=== PATIENT | female | born 1955 | race Two or more races ===

== ENCOUNTER 2017-05-04 21:11 | Inpatient (IN) | payer MEDICAID ==
[~2017-05-04] VITALS: Ht 149.9 cm; Wt 56.2 kg
[2017-05-04 21:56] LABS: BASOPHILS % (AUTO) 0.7 % (0.0-2.0); EOSINOPHILS % (AUTO) 0.5 % (0.0-3.0); MEAN CORPUSCULAR HEMOGLOBIN 34.8 PG (27.0-31.0); MEAN CORPUSCULAR HGB CONC 34.3 G/DL (32.0-36.0); MEAN CORPUSCULAR VOLUME 101 FL (80-99); MEAN PLATELET VOLUME 5.7 FL (6.5-10.1); NEUTROPHILS % (AUTO) 85.7 % (45.0-75.0); PLATELET COUNT 206 K/UL (150-450); RED BLOOD COUNT 3.27 M/UL (4.20-5.40); RED CELL DISTRIBUTION WIDTH 13.9 % (11.6-14.8); WHITE BLOOD COUNT 4.8 K/UL (4.8-10.8)
[2017-05-04 22:00] VITALS: BP 103/65
[2017-05-04] MEDS ORDERED: FENTANYL1 EAC1 TOPIC (22:03)
[2017-05-04 22:06] LABS: TROPONIN I < 0.30 ng/mL (<=0.30)
[2017-05-04 22:09] LABS: ALANINE AMINOTRANSFERASE 143 U/L (3-33); ALBUMIN/GLOBULIN RATIO 1.9 (1.0-2.7); ANION GAP 15 (5-15); ASPARTATE AMINO TRANSFERASE 106 U/L (5-40); CALCIUM 9.1 mg/dL (8.6-10.2); CARBON DIOXIDE 28 mEQ/L (20-30); CHLORIDE 100 mEQ/L (98-107); CREATININE 0.6 mg/dL (0.5-0.9); GLOMERULAR FILTRATION RATE > 60 mL/min (>60); HEMOLYSIS 5; LIPASE 25 U/L (< 60); POTASSIUM 4.2 mEQ/L (3.4-4.9); SODIUM 143 mEQ/L (135-145); TOTAL PROTEIN 5.9 g/dL (6.6-8.7)
[2017-05-04 22:20] LABS: CKMB 2.8 ng/mL (< 3.8)
[2017-05-04] MEDS ORDERED: Zolpidem 5mg tab ORAL PRN (22:45)
[2017-05-04] MEDS ORDERED: Piperacillin/Tazobactam 3.375 GM in NS 110 ML IVPB ONE (22:45)
[2017-05-04] MEDS ORDERED: Miralax 17gm pkt ORAL PRN (22:45)
[2017-05-04] MEDS ORDERED: Mylanta II UD 30ml ORAL PRN (22:45)
[2017-05-04] MEDS ORDERED: Morphine Sulfate 2mg/ml Inj IVP PRN (22:45)
[2017-05-04] MEDS ORDERED: Morphine Sulfate 4mg/ml Inj IVP PRN (22:45)
--- NOTE | 2017-05-04 23:28 | Emergency Room Report ---
History of Present Illness General Chief Complaint: Dyspnea/Respdistress Source: Family Member, Medical Record Present Illness HPI Patient presents from nursing facility with complaints of shortness of breath Speaking to the daughter she reports of the patient's oxygenation was 98% Went to 95% and therefore the patient was sent to the ER Speaking further however she reports that her blood pressure was also low No reports of vomiting or diarrhea Patient had recent extended hospitalization at [facility] recently There was no reports of fevers or chills Patient has chronic pain and is on multiple pain medications Patient also has brain tumor Had previous resection Allergies: Coded Allergies: No Known Allergies (Unverified , 05/04/17) Patient History Limited by: medical condition Past Medical History: see triage record Pertinent Family History: unable to obtain Last Menstrual Period: N/A Reviewed Nursing Documentation: PMH: Agreed, PSxH: Agreed Nursing Documentation-PMH Past Medical History: No History, Except For Hx Cerebrovascular Accident: Yes - LEFT FACIAL DROOPING Review of Systems All Other Systems: limited - Other than the ones mentioned in the history of present illness all others are reviewed however they do stay limited due to the patient's mental status Physical Exam Vital Signs Date Time Temp Pulse Resp B/P Pulse Ox O2 Delivery O2 Flow Rate FiO2 05/04/17 21:01 99.7 117 16 92/53 94 Room Air Sp02 EP Interpretation: reviewed, normal General Appearance: no apparent distress Head: other - Patient has previous craniectomy Eyes: bilateral eye EOMI ENT: normal pharynx, no angioedema, other - Patient has right-sided facial palsy Neck: supple Respiratory: lungs clear Cardiovascular #1: regular rate, rhythm, no edema Gastrointestinal: non tender, soft Genitourinary: no CVA tenderness Musculoskeletal: other - Patient has significant deficits from previous craniectomy, tumor Neurologic: other - Patient has eyes open and is able to track, otherwise nonverbal Skin: normal color, no rash Lymphatic: no adenopathy Medical Decision Making Diagnostic Impression: Primary Impression: UTI (urinary tract infection) Additional Impressions: Elevated transaminase level Hypotension ER Course Patient is a fairly complex patient with multiple differential to consideration including but not limited to cardiac cardiopulmonary and vascular emergencies Patient received further IV hydration Urine sample did show white blood cells and infection Patient was also previously on multiple pain medication including fentanyl patch which could explain some of the low blood pressure initially Patient initiated on antibiotics and admitted for further inpatient care Labs Test 05/04/17 21:19 05/04/17 21:32 Urine Color Pale yellow Urine Appearance Clear Urine pH 5 (4.5-8.0) Urine Specific [place] 1.015 (1.005-1.035) Urine Protein 1+ (NEGATIVE) Urine Glucose (UA) Negative (NEGATIVE) Urine Ketones Negative (NEGATIVE) Urine Occult Blood 5+ (NEGATIVE) Urine Nitrite Negative (NEGATIVE) Urine Bilirubin Negative (NEGATIVE) Urine Urobilinogen Normal MG/DL (0.0-1.0) Urine Leukocyte Esterase 2+ (NEGATIVE) Urine RBC 20-30 /HPF (0 - 2) Urine WBC 30-40 /HPF (0 - 2) Urine Squamous Epithelial Cells Occasional /LPF Urine Bacteria Occasional /HPF (NONE) White Blood Count 4.8 K/UL (4.8-10.8) Red Blood Count 3.27 M/UL (4.20-5.40) Hemoglobin 11.4 G/DL (12.0-16.0) Hematocrit 33.1 % (37.0-47.0) Mean Corpuscular Volume 101 FL (80-99) Mean Corpuscular Hemoglobin 34.8 PG (27.0-31.0) Mean Corpuscular Hemoglobin Concent 34.3 G/DL (32.0-36.0) Red Cell Distribution Width 13.9 % (11.6-14.8) Platelet Count 206 K/UL (150-450) Mean Platelet Volume 5.7 FL (6.5-10.1) Neutrophils (%) (Auto) 85.7 % (45.0-75.0) Lymphocytes (%) (Auto) 6.0 % (20.0-45.0) Monocytes (%) (Auto) 7.0 % (1.0-10.0) Eosinophils (%) (Auto) 0.5 % (0.0-3.0) Basophils (%) (Auto) 0.7 % (0.0-2.0) Prothrombin Time 10.0 SEC (9.30-11.50) Prothromb Time International Ratio 1.0 (0.9-1.1) Activated Partial Thromboplast Time 21 SEC (23-33) Sodium Level 143 mEQ/L (135-145) Potassium Level 4.2 mEQ/L (3.4-4.9) Chloride Level 100 mEQ/L (98-107) Carbon Dioxide Level 28 mEQ/L (20-30) Anion Gap 15 (5-15) Blood Urea Nitrogen 20 mg/dL (7-23) Creatinine 0.6 mg/dL (0.5-0.9) Estimat Glomerular Filtration Rate > 60 mL/min (>60) Glucose Level 117 mg/dL (74-106) Lactic Acid Level 1.10 mmol/L (0.66-2.22) Calcium Level 9.1 mg/dL (8.6-10.2) Total Bilirubin 0.8 mg/dL (0.0-1.2) Aspartate Amino Transf (AST/SGOT) 106 U/L (5-40) Alanine Aminotransferase (ALT/SGPT) 143 U/L (3-33) Alkaline Phosphatase 125 U/L (35-104) Total Creatine Kinase 25 U/L (26-140) Creatine Kinase MB 2.8 ng/mL (< 3.8) Creatine Kinase MB Relative Index 11.2 Troponin I < 0.30 ng/mL (<=0.30) Pro-B-Type Natriuretic Peptide 2890 pg/mL (0-125) Total Protein 5.9 g/dL (6.6-8.7) Albumin 3.9 g/dL (3.5-5.2) Globulin 2.0 g/dL Albumin/Globulin Ratio 1.9 (1.0-2.7) Lipase 25 U/L (< 60) Rhythm Strip Diag. Results EP Interpretation: yes Rate: 88 Rhythm: NSR, no PVC's, no ectopy Chest X-Ray Diagnostic Results EP Interpretation: Yes Findings: no consolidation, no effusion, no pneumothorax Number of Views: 1 CT/MRI/US Diagnostic Results CT/MRI/US Diagnostic Results : Impression Abdominal ultrasound: No acute disease Last Vital Signs Date Time Temp Pulse Resp B/P Pulse Ox O2 Delivery O2 Flow Rate FiO2 05/04/17 22:00 99.7 100 11 103/65 94 Room Air Status: improved Disposition: ADMITTED INPATIENT Condition: Serious Referrals: ALONDRA SALEEM (PCP) OVI BARAJAS D.O. May 04, 2017 23:28
[2017-05-04 23:29] VITALS: BP 108/82
[2017-05-04] MEDS ORDERED: NAPROXEN250 M1 PO (23:29)
[2017-05-04] MEDS ORDERED: PREDNISONE20 M1 PO (23:29)
[2017-05-04] MEDS ORDERED: RISPERIDONE0.5 MG PO (23:29)
[2017-05-04] MEDS ORDERED: KEPPRA500 M4 ORAL (23:29)
[2017-05-04] MEDS ORDERED: PROTONIX40 M2 GT (23:30)
[2017-05-05] VITALS (7 sets, daily range): BP systolic 98–153; BP diastolic 63–92
[2017-05-05] MEDS ORDERED: Zosyn 3.375gm inj ONE (01:12)
[2017-05-05] MEDS: D5NS 1,000 ML IV SCH ×2 (01:14→12:35)
[2017-05-05] MEDS: LORazepam Inj 2mg/ml 1ml IV PRN ×2 (03:21→20:02)
[2017-05-05] MEDS ORDERED: VITAMIN D250000 UNI1 ORAL (04:07)
[2017-05-05] MEDS ORDERED: PROTONIX20 MG ORAL (04:07)
[2017-05-05] MEDS ORDERED: NAPROXEN500 M2 ORAL (04:07)
[2017-05-05] MEDS ORDERED: LOPERAMIDE2 MG PO (04:07)
[2017-05-05] MEDS ORDERED: LIDOCAINE TD (04:07)
[2017-05-05] MEDS ORDERED: TAMSULOSIN HCL0.4 MG ORAL (04:07)
[2017-05-05] MEDS ORDERED: hydromorphone PO (04:07)
[2017-05-05] MEDS ORDERED: RISPERDAL0.5 MG ORAL (04:07)
[2017-05-05] MEDS ORDERED: PREDNISONE20 MG ORAL (04:07)
[2017-05-05] MEDS ORDERED: TAPAZOLE5 M1 PO (04:07)
[2017-05-05] MEDS ORDERED: ZOFRAN4 M1 ORAL (04:07)
[2017-05-05 06:09] LABS: KETONES,URINE 2+ (NEGATIVE); LEUKOCYTE ESTERASE ,URINE 3+ (NEGATIVE); PH,URINE 5 (4.5-8.0); PROTEIN,URINE 2+ (NEGATIVE); UROBILINOGEN,URINE 1 MG/DL (0.0-1.0)
[2017-05-05 06:15] LABS: APPEARANCE,URINE SLIGHTLY CLOUDY
[2017-05-05 06:16] LABS: NITRITE,URINE NEGATIVE (NEGATIVE); WBC,URINE 40-60 /HPF (0 - 2)
[2017-05-05 06:17] LABS: BACTERIA,URINE FEW /HPF
[2017-05-05 06:18] LABS: ICTOTEST NEGATIVE
[2017-05-05 08:42] LABS: MEAN CORPUSCULAR HEMOGLOBIN 33.5 PG (27.0-31.0); MEAN CORPUSCULAR HGB CONC 33.3 G/DL (32.0-36.0); MEAN CORPUSCULAR VOLUME 101 FL (80-99); MEAN PLATELET VOLUME 6.3 FL (6.5-10.1); PLATELET COUNT 212 K/UL (150-450); RED BLOOD COUNT 3.26 M/UL (4.20-5.40); RED CELL DISTRIBUTION WIDTH 13.7 % (11.6-14.8); WHITE BLOOD COUNT 3.3 K/UL (4.8-10.8)
[2017-05-05 08:55] LABS: ALANINE AMINOTRANSFERASE 134 U/L (3-33); ALBUMIN/GLOBULIN RATIO 1.7 (1.0-2.7); ANION GAP 14 (5-15); ASPARTATE AMINO TRANSFERASE 85 U/L (5-40); CALCIUM 8.6 mg/dL (8.6-10.2); CARBON DIOXIDE 25 mEQ/L (20-30); CHLORIDE 101 mEQ/L (98-107); CREATININE 0.5 mg/dL (0.5-0.9); GLOMERULAR FILTRATION RATE > 60 mL/min (>60); HEMOLYSIS 4; POTASSIUM 3.1 mEQ/L (3.4-4.9); SODIUM 140 mEQ/L (135-145); TOTAL PROTEIN 5.5 g/dL (6.6-8.7)
--- NOTE | 2017-05-05 08:56 | Consultation ---
History of Present Illness General Date patient seen: May 05, 2017 Time patient seen: 07:30 - am Present Illness Allergies: Coded Allergies: No Known Allergies (Unverified , 05/04/17) Medication History Scheduled Ergocalciferol (Vitamin D2)* (Vitamin D*), 50,000 UNIT ORAL ONCE A WEEK, ( Reported) Fentanyl 50MCG Patch (Fentanyl 50MCG Patch*), 1 PATCH TOPIC EVERY 72 HOURS, ( Reported) Levetiracetam (Keppra), 500 MG ORAL EVERY 12 HOURS, (Reported) Methimazole (Tapazole), 5 MG PO DAILY, (Reported) Naproxen* (Naproxen*), 500 MG ORAL TWICE A DAY, (Reported) Pantoprazole Sodium (Protonix), 40 MG ORAL DAILY, (Reported) Prednisone* (Prednisone*), 60 MG ORAL DAILY, (Reported) Risperidone* (Risperdal*), 0.5 MG ORAL QHS, (Reported) Tamsulosin Hcl (Tamsulosin Hcl*), 0.4 MG ORAL BEDTIME, (Reported) [lidocaie patch], 5 % TD DAILY, (Reported) Scheduled PRN Loperamide Hcl (Loperamide), 2 MG PO EVERY 6 HOURS PRN for Diarrhea, (Reported) Ondansetron (Zofran), 4 MG ORAL Q8HR PRN for Nausea & Vomiting, (Reported) [hydromorphone], 4 MG PO EVERY 2 HOURS PRN for For Pain, (Reported) Discontinued Medications Naproxen (Naproxen), 500 MG PO, (Reported) Discontinued Reason: Prescription changed Pantoprazole Sodium (Protonix), 40 MG GT DAILY, (Reported) Discontinued Reason: Prescription changed Patient History Healthcare decision maker Ellen Buchanan Resuscitation status Do Not Resuscitate Advanced Directive on File Physical Exam Last 24 Hour Vital Signs Date Time Temp Pulse Resp B/P Pulse Ox O2 Delivery O2 Flow Rate FiO2 05/05/17 08:10 96.6 92 18 124/76 95 Room Air 05/05/17 04:00 104 05/05/17 04:00 97.7 92 20 99/63 96 Room Air 05/05/17 00:55 97.5 97 20 98/69 98 Room Air 05/05/17 00:00 115 05/04/17 23:41 99.7 100 18 108/82 96 Room Air 05/04/17 23:29 99.7 100 18 108/82 96 Room Air 05/04/17 22:00 99.7 100 11 103/65 94 Room Air 05/04/17 21:58 102 13 Room Air 05/04/17 21:01 99.7 117 16 92/53 94 Room Air Intake and Output 05/04/17 05/05/17 19:00 07:00 Intake Total 485 ml Output Total 335 ml Balance 150 ml Intake IV Total 485 ml Output Urine Total 335 ml Laboratory Tests Test 05/04/17 21:32 05/05/17 06:00 05/05/17 08:10 White Blood Count 4.8 K/UL (4.8-10.8) 3.3 K/UL (4.8-10.8) L Red Blood Count 3.27 M/UL (4.20-5.40) L 3.26 M/UL (4.20-5.40) L Hemoglobin 11.4 G/DL (12.0-16.0) L 10.9 G/DL (12.0-16.0) L Hematocrit 33.1 % (37.0-47.0) L 32.8 % (37.0-47.0) L Mean Corpuscular Volume 101 FL (80-99) H 101 FL (80-99) H Mean Corpuscular Hemoglobin 34.8 PG (27.0-31.0) H 33.5 PG (27.0-31.0) H Mean Corpuscular Hemoglobin Concent 34.3 G/DL (32.0-36.0) 33.3 G/DL (32.0-36.0) Red Cell Distribution Width 13.9 % (11.6-14.8) 13.7 % (11.6-14.8) Platelet Count 206 K/UL (150-450) 212 K/UL (150-450) Mean Platelet Volume 5.7 FL (6.5-10.1) L 6.3 FL (6.5-10.1) L Neutrophils (%) (Auto) 85.7 % (45.0-75.0) H % (45.0-75.0) Lymphocytes (%) (Auto) 6.0 % (20.0-45.0) L % (20.0-45.0) Monocytes (%) (Auto) 7.0 % (1.0-10.0) % (1.0-10.0) Eosinophils (%) (Auto) 0.5 % (0.0-3.0) % (0.0-3.0) Basophils (%) (Auto) 0.7 % (0.0-2.0) % (0.0-2.0) Prothrombin Time 10.0 SEC (9.30-11.50) Prothromb Time International Ratio 1.0 (0.9-1.1) Activated Partial Thromboplast Time 21 SEC (23-33) L Sodium Level 143 mEQ/L (135-145) Pending Potassium Level 4.2 mEQ/L (3.4-4.9) Pending Chloride Level 100 mEQ/L (98-107) Pending Carbon Dioxide Level 28 mEQ/L (20-30) Pending Anion Gap 15 (5-15) Blood Urea Nitrogen 20 mg/dL (7-23) Pending Creatinine 0.6 mg/dL (0.5-0.9) Pending Estimat Glomerular Filtration Rate > 60 mL/min (>60) Pending Glucose Level 117 mg/dL (74-106) H Pending Lactic Acid Level 1.10 mmol/L (0.66-2.22) Calcium Level 9.1 mg/dL (8.6-10.2) Pending Total Bilirubin 0.8 mg/dL (0.0-1.2) Pending Aspartate Amino Transf (AST/SGOT) 106 U/L (5-40) H Pending Alanine Aminotransferase (ALT/SGPT) 143 U/L (3-33) H Pending Alkaline Phosphatase 125 U/L (35-104) H Pending Total Creatine Kinase 25 U/L (26-140) L Creatine Kinase MB 2.8 ng/mL (< 3.8) Creatine Kinase MB Relative Index 11.2 Troponin I < 0.30 ng/mL (<=0.30) Pro-B-Type Natriuretic Peptide 2890 pg/mL (0-125) H Total Protein 5.9 g/dL (6.6-8.7) L Pending Albumin 3.9 g/dL (3.5-5.2) Pending Globulin 2.0 g/dL Pending Albumin/Globulin Ratio 1.9 (1.0-2.7) Lipase 25 U/L (< 60) Urine Color Green Urine Appearance Slightly cloudy Urine pH 5 (4.5-8.0) Urine Specific [place] 1.020 (1.005-1.035) Urine Protein 2+ (NEGATIVE) H Urine Glucose (UA) Negative (NEGATIVE) Urine Ketones 2+ (NEGATIVE) H Urine Occult Blood 1+ (NEGATIVE) H Urine Nitrite Negative (NEGATIVE) Urine Bilirubin 1+ (NEGATIVE) H Urine Ictotest Negative Urine Urobilinogen 1 MG/DL (0.0-1.0) H Urine Leukocyte Esterase 3+ (NEGATIVE) H Urine RBC 2-4 /HPF (0 - 2) H Urine WBC 40-60 /HPF (0 - 2) H Urine Squamous Epithelial Cells None /LPF (NONE/OCC) Urine Bacteria Few /HPF (NONE) Neutrophils % (Manual) Pending Lymphocytes % (Manual) Pending Platelet Estimate Pending Platelet Morphology Pending Thyroid Stimulating Hormone (TSH) Pending Height (Feet): 4 Height (Inches): 11.00 Weight (Pounds): 103 Medications Current Medications Medications (Trade) Dose Ordered Sig/Hamlet Route PRN Reason Start Time Stop Time Status Last Admin Dose Admin Acetaminophen (Tylenol) 650 mg Q4H PRN ORAL fever 05/04/17 22:45 06/03/17 22:44 Al Hydroxide/Mg Hydroxide (Mylanta II) 30 ml Q6H PRN ORAL dyspepsia 05/04/17 22:45 06/03/17 22:44 Dextrose (Dextrose 50%) STAT PRN IV Hypoglycemia 05/04/17 22:45 06/03/17 22:44 Dextrose/Sodium Chloride (D5ns) 1,000 ml @ 75 mls/hr [id number] IV 05/04/17 22:45 06/03/17 22:44 05/05/17 01:14 Heparin Sodium (Porcine) (Heparin 5000 units/ml) 5,000 units EVERY 12 HOURS SUBQ 05/05/17 09:00 06/04/17 08:59 Lorazepam (Ativan 2mg/ml 1ml) 0.5 mg Q4H PRN IV For Anxiety 05/04/17 22:45 05/11/17 22:44 05/05/17 03:21 Morphine Sulfate (Morphine Sulfate) 2 mg Q4H PRN IVP For Pain 4-6 05/04/17 22:45 05/11/17 22:44 Morphine Sulfate 4 mg 4 mg Q4H PRN IVP For Pain 7-10 05/04/17 22:45 05/11/17 22:44 05/05/17 01:18 Ondansetron HCl (Zofran) 4 mg Q6H PRN IVP Nausea & Vomiting 05/04/17 22:45 06/03/17 22:44 Polyethylene Glycol (Miralax) 17 gm HSPRN PRN ORAL Constipation 05/04/17 22:45 06/03/17 22:44 Zolpidem Tartrate (Ambien) 5 mg HSPRN PRN ORAL Insomnia 05/04/17 22:45 06/03/17 22:44 Assessment/Plan Assessment/Plan (1) Metastatic Melanoma to brain (2) intractable pain (3) Sacral decubitus ulcer seen and dictated LEIGHA RICHARDSON May 05, 2017 08:56
[2017-05-05] MEDS: Heparin 5000 units/ml inj SUBQ SCH ×2 (09:13→21:26)
--- NOTE | 2017-05-05 09:19 | Diagnostic Imaging Report ---
Indication:Abdominal pain Technique: Grayscale and duplex Doppler imaging of the abdomen performed. Comparison: None Findings: There is a cystic lesion measuring 1.7 x 2.0 CM within the spleen. There is an echogenic mass in the right kidney 1.1 CM probably angiomyolipoma. There is no hydronephrosis. Gallbladder sludge is present. Gallbladder wall thickening is present, nonspecific in nature. There is no biliary ductal dilatation. The liver appears unremarkable. Main portal vein is patent by Doppler examination. CBD is 4 mm. Pancreas is not well seen. Aorta is not well seen. Impression: Limited evaluation of the abdomen. Gallbladder sludge and wall thickening. 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 Splenic cyst
--- NOTE | 2017-05-05 09:33 | Diagnostic Imaging Report ---
Indication: Dyspnea Comparison: None A single view chest radiograph was obtained. Findings: Patchy infiltrate versus atelectasis demonstrated at the lung bases. Lung volumes are low. Heart size is borderline. Bones are slightly osteopenic. Aorta is ectatic. Impression: Mild infiltrate versus atelectasis at the lung bases
[2017-05-05] MEDS ORDERED: Naloxone 0.4mg/ml Inj IV PRN (10:00)
[2017-05-05] MEDS ORDERED: HYDROmorphone 1mg/ml Carpuject IVP PRN (10:00)
[2017-05-05] MEDS ORDERED: Tubing IV Secondary IV ONE (10:33)
[2017-05-05] MEDS ORDERED: D5NS 1000ml IV ONE (10:33)
--- NOTE | 2017-05-05 11:12 | History & Physical ---
History and Physical History & Physicial Dictated for Int Med-Dr Ortiz no. [id number]. STACY KIMBALL May 05, 2017 11:12
[2017-05-05 11:19] LABS: BAND NEUTROPHILS % (MANUAL) 0 % (0-8); BASOPHILS % (MANUAL) 0 % (0-2); EOSINOPHILS % (MANUAL) 0 % (0-3); HYPOCHROMASIA 1+; LYMPHOCYTES % (MANUAL) 12 % (20-45); MACROCYTES 1+; NEUTROPHILS % (MANUAL) 81 % (45-75); PLATELET ESTIMATE ADEQUATE; PLATELET MORPHOLOGY NORMAL; TOTAL CELLS COUNTED 100
--- NOTE | 2017-05-05 12:31 | Consultation ---
History of Present Illness General Date patient seen: May 05, 2017 Chief Complaint: Dyspnea/Respdistress Reason for Consultation: dypnea Present Illness HPI 61 year old female with hx of melanoma, brain mets, s/p resection presented from nursing facility with complaints of shortness of breath, her blood pressure was also low Patient had recent extended hospitalization at [facility] recently. She has chronic pain and is on multiple pain medications. Allergies: Coded Allergies: No Known Allergies (Unverified , 05/04/17) Medication History Scheduled Ergocalciferol (Vitamin D2)* (Vitamin D*), 50,000 UNIT ORAL ONCE A WEEK, ( Reported) Fentanyl 50MCG Patch (Fentanyl 50MCG Patch*), 1 PATCH TOPIC EVERY 72 HOURS, ( Reported) Levetiracetam (Keppra), 500 MG ORAL EVERY 12 HOURS, (Reported) Methimazole (Tapazole), 5 MG PO DAILY, (Reported) Naproxen* (Naproxen*), 500 MG ORAL TWICE A DAY, (Reported) Pantoprazole Sodium (Protonix), 40 MG ORAL DAILY, (Reported) Prednisone* (Prednisone*), 60 MG ORAL DAILY, (Reported) Risperidone* (Risperdal*), 0.5 MG ORAL QHS, (Reported) Tamsulosin Hcl (Tamsulosin Hcl*), 0.4 MG ORAL BEDTIME, (Reported) [lidocaie patch], 5 % TD DAILY, (Reported) Scheduled PRN Loperamide Hcl (Loperamide), 2 MG PO EVERY 6 HOURS PRN for Diarrhea, (Reported) Ondansetron (Zofran), 4 MG ORAL Q8HR PRN for Nausea & Vomiting, (Reported) [hydromorphone], 4 MG PO EVERY 2 HOURS PRN for For Pain, (Reported) Discontinued Medications Naproxen (Naproxen), 500 MG PO, (Reported) Discontinued Reason: Prescription changed Pantoprazole Sodium (Protonix), 40 MG GT DAILY, (Reported) Discontinued Reason: Prescription changed Patient History Healthcare decision maker Ellen Buchanan Resuscitation status Do Not Resuscitate Advanced Directive on File Past Medical/Surgical History Past Medical/Surgical History: (1) Melanoma (2) Cerebrovascular accident (CVA) Review of Systems All Other Systems: negative except mentioned in HPI Physical Exam General Appearance: WD/WN Lines, tubes and drains: peripheral HEENT: normocephalic, atraumatic Neck: non-tender, normal alignment Respiratory/Chest: chest wall non-tender, lungs clear Cardiovascular/Chest: normal peripheral pulses, normal rate Abdomen: normal bowel sounds, non tender Genitourinary/Rectal: normal genital exam Skin Exam: normal pigmentation Last 24 Hour Vital Signs Date Time Temp Pulse Resp B/P Pulse Ox O2 Delivery O2 Flow Rate FiO2 05/05/17 11:52 96.4 93 18 128/83 96 05/05/17 10:47 96.6 05/05/17 10:15 96.6 05/05/17 08:10 96.6 92 18 124/76 95 Room Air 05/05/17 07:59 110 05/05/17 04:00 104 05/05/17 04:00 97.7 92 20 99/63 96 Room Air 05/05/17 00:55 97.5 97 20 98/69 98 Room Air 05/05/17 00:00 115 05/04/17 23:41 99.7 100 18 108/82 96 Room Air 05/04/17 23:29 99.7 100 18 108/82 96 Room Air 05/04/17 22:00 99.7 100 11 103/65 94 Room Air 05/04/17 21:58 102 13 Room Air 05/04/17 21:01 99.7 117 16 92/53 94 Room Air Intake and Output 05/04/17 05/05/17 19:00 07:00 Intake Total 485 ml Output Total 335 ml Balance 150 ml Intake IV Total 485 ml Output Urine Total 335 ml Laboratory Tests Test 05/04/17 21:32 05/05/17 06:00 05/05/17 08:10 White Blood Count 4.8 K/UL (4.8-10.8) 3.3 K/UL (4.8-10.8) L Red Blood Count 3.27 M/UL (4.20-5.40) L 3.26 M/UL (4.20-5.40) L Hemoglobin 11.4 G/DL (12.0-16.0) L 10.9 G/DL (12.0-16.0) L Hematocrit 33.1 % (37.0-47.0) L 32.8 % (37.0-47.0) L Mean Corpuscular Volume 101 FL (80-99) H 101 FL (80-99) H Mean Corpuscular Hemoglobin 34.8 PG (27.0-31.0) H 33.5 PG (27.0-31.0) H Mean Corpuscular Hemoglobin Concent 34.3 G/DL (32.0-36.0) 33.3 G/DL (32.0-36.0) Red Cell Distribution Width 13.9 % (11.6-14.8) 13.7 % (11.6-14.8) Platelet Count 206 K/UL (150-450) 212 K/UL (150-450) Mean Platelet Volume 5.7 FL (6.5-10.1) L 6.3 FL (6.5-10.1) L Neutrophils (%) (Auto) 85.7 % (45.0-75.0) H % (45.0-75.0) Lymphocytes (%) (Auto) 6.0 % (20.0-45.0) L % (20.0-45.0) Monocytes (%) (Auto) 7.0 % (1.0-10.0) % (1.0-10.0) Eosinophils (%) (Auto) 0.5 % (0.0-3.0) % (0.0-3.0) Basophils (%) (Auto) 0.7 % (0.0-2.0) % (0.0-2.0) Prothrombin Time 10.0 SEC (9.30-11.50) Prothromb Time International Ratio 1.0 (0.9-1.1) Activated Partial Thromboplast Time 21 SEC (23-33) L Sodium Level 143 mEQ/L (135-145) 140 mEQ/L (135-145) Potassium Level 4.2 mEQ/L (3.4-4.9) 3.1 mEQ/L (3.4-4.9) L Chloride Level 100 mEQ/L (98-107) 101 mEQ/L (98-107) Carbon Dioxide Level 28 mEQ/L (20-30) 25 mEQ/L (20-30) Anion Gap 15 (5-15) 14 (5-15) Blood Urea Nitrogen 20 mg/dL (7-23) 14 mg/dL (7-23) Creatinine 0.6 mg/dL (0.5-0.9) 0.5 mg/dL (0.5-0.9) Estimat Glomerular Filtration Rate > 60 mL/min (>60) > 60 mL/min (>60) Glucose Level 117 mg/dL (74-106) H 117 mg/dL (74-106) H Lactic Acid Level 1.10 mmol/L (0.66-2.22) Calcium Level 9.1 mg/dL (8.6-10.2) 8.6 mg/dL (8.6-10.2) Total Bilirubin 0.8 mg/dL (0.0-1.2) 0.7 mg/dL (0.0-1.2) Aspartate Amino Transf (AST/SGOT) 106 U/L (5-40) H 85 U/L (5-40) H Alanine Aminotransferase (ALT/SGPT) 143 U/L (3-33) H 134 U/L (3-33) H Alkaline Phosphatase 125 U/L (35-104) H 103 U/L (35-104) Total Creatine Kinase 25 U/L (26-140) L Creatine Kinase MB 2.8 ng/mL (< 3.8) Creatine Kinase MB Relative Index 11.2 Troponin I < 0.30 ng/mL (<=0.30) Pro-B-Type Natriuretic Peptide 2890 pg/mL (0-125) H Total Protein 5.9 g/dL (6.6-8.7) L 5.5 g/dL (6.6-8.7) L Albumin 3.9 g/dL (3.5-5.2) 3.5 g/dL (3.5-5.2) Globulin 2.0 g/dL 2.0 g/dL Albumin/Globulin Ratio 1.9 (1.0-2.7) 1.7 (1.0-2.7) Lipase 25 U/L (< 60) Urine Color Green Urine Appearance Slightly cloudy Urine pH 5 (4.5-8.0) Urine Specific [place] 1.020 (1.005-1.035) Urine Protein 2+ (NEGATIVE) H Urine Glucose (UA) Negative (NEGATIVE) Urine Ketones 2+ (NEGATIVE) H Urine Occult Blood 1+ (NEGATIVE) H Urine Nitrite Negative (NEGATIVE) Urine Bilirubin 1+ (NEGATIVE) H Urine Ictotest Negative Urine Urobilinogen 1 MG/DL (0.0-1.0) H Urine Leukocyte Esterase 3+ (NEGATIVE) H Urine RBC 2-4 /HPF (0 - 2) H Urine WBC 40-60 /HPF (0 - 2) H Urine Squamous Epithelial Cells None /LPF (NONE/OCC) Urine Bacteria Few /HPF (NONE) Differential Total Cells Counted 100 Neutrophils % (Manual) 81 % (45-75) H Lymphocytes % (Manual) 12 % (20-45) L Monocytes % (Manual) 7 % (1-10) Eosinophils % (Manual) 0 % (0-3) Basophils % (Manual) 0 % (0-2) Band Neutrophils 0 % (0-8) Platelet Estimate Adequate Platelet Morphology Normal Hypochromasia 1+ Macrocytosis 1+ Thyroid Stimulating Hormone (TSH) 0.220 uIU/mL (0.300-4.500) Height (Feet): 4 Height (Inches): 11.00 Weight (Pounds): 103 Medications Current Medications Medications (Trade) Dose Ordered Sig/Hamlet Route PRN Reason Start Time Stop Time Status Last Admin Dose Admin Acetaminophen (Tylenol) 650 mg Q4H PRN ORAL fever 05/04/17 22:45 06/03/17 22:44 Al Hydroxide/Mg Hydroxide (Mylanta II) 30 ml Q6H PRN ORAL dyspepsia 05/04/17 22:45 06/03/17 22:44 Dextrose STAT PRN IV Hypoglycemia 05/04/17 22:45 06/03/17 22:44 Dextrose/Sodium Chloride (D5ns) 1,000 ml @ 75 mls/hr [id number] IV 05/04/17 22:45 06/03/17 22:44 05/05/17 01:14 Fentanyl (Duragesic) 1 patch Q72H TDERMAL 05/05/17 10:15 05/12/17 10:14 05/05/17 10:17 Heparin Sodium (Porcine) (Heparin 5000 units/ml) 5,000 units EVERY 12 HOURS SUBQ 05/05/17 09:00 06/04/17 08:59 05/05/17 09:13 Hydromorphone HCl 4 mg 4 mg Q4H PRN IVP Severe Pain (Pain Scale 7-10) 05/05/17 14:00 05/12/17 13:59 Levetiracetam (Keppra) 500 mg Q12HR ORAL 05/05/17 21:00 06/04/17 20:59 Lorazepam (Ativan 2mg/ml 1ml) 0.5 mg Q4H PRN IV For Anxiety 05/04/17 22:45 05/11/17 22:44 05/05/17 03:21 Naloxone HCl (Narcan) 0.1 mg PRN IV Sedation scale 3 or 4 05/05/17 10:00 Ondansetron HCl (Zofran) 4 mg Q6H PRN IVP Nausea & Vomiting 05/04/17 22:45 06/03/17 22:44 Oxycodone/ Acetaminophen 1 tab 1 tab Q6H PRN ORAL Moderate Pain (Pain Scale 4-6) 05/05/17 10:00 05/12/17 09:59 Piperacillin Sod/ Tazobactam Sod/ Dextrose (Zosyn/D5W) 110 ml @ 27.5 mls/hr EVERY 8 HOURS IVPB 05/05/17 13:00 05/10/17 12:59 Polyethylene Glycol (Miralax) 17 gm HSPRN PRN ORAL Constipation 05/04/17 22:45 06/03/17 22:44 Potassium Chloride (KCl 10mEq/100ml Premix) 100 ml @ 100 mls/hr Q1H IVPB 05/05/17 11:00 05/05/17 14:59 05/05/17 10:55 Zolpidem Tartrate (Ambien) 5 mg HSPRN PRN ORAL Insomnia 05/04/17 22:45 06/03/17 22:44 Assessment/Plan Problem List: (1) Dyspnea ICD Codes: R06.00 - Dyspnea, unspecified SNOMED: 842683790 (2) Hypotension ICD Codes: I95.9 - Hypotension, unspecified SNOMED: 96653429, 512488547 (3) Melanoma ICD Codes: C43.9 - Malignant melanoma of skin, unspecified SNOMED: 878034066 (4) Cerebrovascular accident (CVA) ICD Codes: I63.9 - Cerebral infarction, unspecified SNOMED: 599652000 (5) At high risk for aspiration ICD Codes: Z91.89 - Other specified personal risk factors, not elsewhere classified SNOMED: 937073991 Assessment/Plan Respiratory therapy swallow evalution check sputum ID and pain consult. dvt prophylaxis aspiration precaution BARB SHAH May 05, 2017 12:31
[2017-05-05] MEDS: Piperacillin/Tazobactam 3.375 GM in D5W 110 ML IVPB SCH ×2 (12:35→21:34)
--- NOTE | 2017-05-05 16:38 | Wound Care Consultation ---
Wound Assessment Wound Assessment : Wound Present on Admission: Yes New Wound: No Status Change of Wound: No Wound Location Body Site Modif: mid Wound Location Body Site: sacral - Wound Type: pressure ulcer Varun Test: Does not Varun Pressure Ulcer Stage: deep tissue injury Wound Thickness: Full Thickness Wound Length: 2.5 Wound Width: 2.5 Wound Depth: utd Percent of Wound Purple/Maroon: 100 Wound Drainage Amount: None Wound Drainage Odor: None/Absent Tissue Surrounding Wound: Erythemic Wound General Appearance: Reddened - purple Wound Comment #1 Sacral DTI pressure ulcer Recommendation -Local wound care per protocol for DTI -Keep clean and dry -Turn and reposition -Low air loss mattress -Optimize nutrition -Offload heels -Heel protector on both heels -Assess and f/u accordingly for any changes ISSAC MCARTHUR RN May 05, 2017 16:38
--- NOTE | 2017-05-05 16:45 | History and Physical Report ---
DATE OF ADMISSION: 05/04/2017 CHIEF COMPLAINT: The patient is a 61-year-old Malaysian-speaking woman with history of metastatic melanoma presents with chief complaint of hypoxia and altered mental status. HISTORY OF PRESENT ILLNESS: The patient was apparently discharged from herself and is unable to contribute much to the history and physical. The patient's daughter, Ellen Merchant is present. Much of the history and physical is obtained from the patient's daughter at the bedside. The patient apparently was discharged from [facility] on Wednesday,04/30/2017. The patient has a history of metastatic melanoma with metastases to the brain. According to staff at [facility], the patient became hypoxic yesterday, 05/04/2017. The patient also had "low blood pressure." The patient was transported to [place] emergency room. A chest x-ray revealed bilateral basilar pneumonia. The patient was admitted for hypoxia, altered mental status and bibasilar pneumonia. PAST MEDICAL HISTORY: Significant for 1. Melanoma with metastases to the brain. 2. Hydrocephalus. 3. Metabolic encephalopathy. 4. History of hemorrhagic cerebrovascular accident. 5. Hypothyroidism. 6. Stage II decubitus sacral ulcer. PAST SURGICAL HISTORY: Significant for 1. Resection of melanoma from the left calf. 2. Craniotomy in the recent past. MEDICATIONS: Current medications from [facility] 1. Keppra 500 mg two tablets p.o. twice daily. 2. Lidocaine transdermal patch applied q.12 h. 3. Naproxen 500 mg one tablet p.o. twice daily. 4. Prednisone 20 mg three tablets p.o. daily. 5. Protonix 40 mg p.o. every morning. 6. Risperdal 0.5 mg one tablet p.o. at bedtime. 7. Flomax 0.4 mg p.o. daily. 8. Tapazole 5 mg one tablet p.o. daily. 9. Vitamin D 50,000 units p.o. q.7 days. 10. Dilaudid 4 milligram three tablets p.o. q.2 h. p.r.n. 11. Imodium 2 mg two tablets p.o. q.6 h. p.r.n. 12. Zofran 4 mg one tablet p.o. q.8 h. p.r.n. ALLERGIES: No known drug allergies. SOCIAL HISTORY: The patient is . The patient has a grown daughter, Ellen Merchant with [id number]. The patient admits to previous tobacco use, however, quit three years previously. The patient denies alcohol use. REVIEW OF SYSTEMS: Unable to assess secondary to the patient's mental status. PHYSICAL EXAMINATION: GENERAL: The patient is well developed and well nourished white female, who appears older than her stated age. VITAL SIGNS: Temperature 97.5 degrees, respirations 20, pulse 97, blood pressure 98/69. HEENT: There is a left facial droop noted. Otherwise, eyes, pupils are equal and responsive to light and accommodation. Extraocular movements are intact. NECK: Supple without lymphadenopathy. CHEST: Decreased breath sounds at bilateral bases. Otherwise, without wheezes or rales. CARDIOVASCULAR: Regular rate. S1 and S2 normal without murmurs, rubs, gallops. ABDOMEN: Soft, nontender, and nondistended. Positive bowel sounds. No evidence of hepatosplenomegaly. Currently, no rebound or guarding. EXTREMITIES: Negative for clubbing, cyanosis, or edema. RECTAL/GENITAL: Refused. NEUROLOGIC: There is a left facial droop noted. Cranial nerves II through XII are grossly intact without focal deficits. Motor strength is decreased to 3/5 bilaterally. LABORATORY AND DIAGNOSTIC DATA: WBC 4.8, hemoglobin 11.4, hematocrit 33.1, and platelets 206,000. Sodium 143, potassium 4.2, chloride 100, CO2 28, BUN 20, creatinine 0.6, and glucose 117. Liver function tests were elevated with an AST 106, ALT of 143, and alkaline phosphatase 125. BNP elevated at 2890. Troponin less than 0.3. Chest x-ray revealed mild infiltrate versus atelectasis in the bilateral bases. An abdominal ultrasound revealed gallbladder sludge and gallbladder wall thickening. ASSESSMENT: This is a 61-year-old white female 1. Bilateral basilar pneumonia. 2. Altered mental status. 3. Hypoxia. 4. Dyspnea. 5. Hypotension. 6. Metastatic melanoma with metastases to the brain. 7. Hydrocephalus. 8. Metabolic encephalopathy. 9. Hemorrhagic cerebrovascular accident. 10. Hyperthyroidism. 11. Stage II decubitus ulcer of the sacrum. TREATMENT: 1. Bibasilar pneumonia. The patient has been started empirically on Zosyn. A Pulmonary consultation will be obtained with Dr. Guillermina Spear. Infectious Disease consultation will be obtained with Dr. Cox. Sputum cultures are pending. 2. Hypoxia/dyspnea, this is probably secondary to bibasilar pneumonia. as above. 3. Hypotension, this is probably secondary to sepsis. Continue Zosyn as above. 4. Metastatic melanoma with metastases to the brain. A Hematology/Oncology consultation will be obtained with Dr. Madsen. 5. Hydrocephalus, this is secondary to metastases to the brain. 6. Metabolic encephalopathy. 7. Hemorrhagic cerebrovascular accident. 8. Hypothyroidism. Continue Tapazole as above. 9. Stage II decubitus sacral ulcer. Justo Marin M.D. DR: GARIMA JOB#: [id number] CC:
--- NOTE | 2017-05-05 17:51 | Cardiology Report ---
APPROVED REPORT EKG Measurement Heart [id number] [place] 132P30 [id number] Sinus tachycardia Abnormal ECG
--- NOTE | 2017-05-05 17:51 | Consultation ---
Consult Note Consult Note Oncology Consult Note REQ : [facility]: Metastatic melanoma eval DOS 6.7.17 ID 61-year-old Bahamian-speaking woman with history of metastatic melanoma presents with chief complaint of hypoxia and altered mental status. Recently was admitted to [facility] and have reviewed their records, discussed with Ellen Merchant. The patient apparently was discharged from [facility] on Wednesday,04/30/2017. The patient has a history of metastatic melanoma with metastases to the brain. According to staff at [facility], the patient became hypoxic yesterday, 05/04/2017. The patient also had "low blood pressure." Now being admitted for bilateral pneumonia. PAST MEDICAL HISTORY: 1. Melanoma with metastases to the brain. 2. Hydrocephalus. 3. Metabolic encephalopathy. 4. History of hemorrhagic cerebrovascular accident. 5. Hypothyroidism. 6. Stage II decubitus sacral ulcer. PAST SURGICAL HISTORY: 1. Resection of melanoma from the left calf. 2. Craniotomy in the recent past. MEDICATIONS: 1. Keppra 500 mg two tablets p.o. twice daily. 2. Lidocaine transdermal patch applied q.12 h. 3. Naproxen 500 mg one tablet p.o. twice daily. 4. Prednisone 20 mg three tablets p.o. daily. 5. Protonix 40 mg p.o. every morning. 6. Risperdal 0.5 mg one tablet p.o. at bedtime. 7. Flomax 0.4 mg p.o. daily. 8. Tapazole 5 mg one tablet p.o. daily. 9. Vitamin D 50,000 units p.o. q.7 days. 10. Dilaudid 4 milligram three tablets p.o. q.2 h. p.r.n. 11. Imodium 2 mg two tablets p.o. q.6 h. p.r.n. 12. Zofran 4 mg one tablet p.o. q.8 h. p.r.n. ALLERGIES: No known drug allergies. SOCIAL HISTORY: The patient is . The patient has a grown daughter, Ellen Merchant with [id number]. The patient admits to previous tobacco use, however, quit three years previously. The patient denies alcohol use. REVIEW OF SYSTEMS: Unable to assess secondary to the patient's mental status. PE: General Appearance: A+O x3, NAD HEENT: normocephalic, atraumatic Neck: non-tender, normal alignment Respiratory/Chest: chest wall non-tender, lungs clear Cardiovascular/Chest: normal peripheral pulses, normal rate Abdomen: normal bowel sounds, non tender Labs: Laboratory Tests Test 05/04/17 21:32 05/05/17 06:00 05/05/17 08:10 White Blood Count 4.8 K/UL (4.8-10.8) 3.3 K/UL (4.8-10.8) L Red Blood Count 3.27 M/UL (4.20-5.40) L 3.26 M/UL (4.20-5.40) L Hemoglobin 11.4 G/DL (12.0-16.0) L 10.9 G/DL (12.0-16.0) L Hematocrit 33.1 % (37.0-47.0) L 32.8 % (37.0-47.0) L Mean Corpuscular Volume 101 FL (80-99) H 101 FL (80-99) H Mean Corpuscular Hemoglobin 34.8 PG (27.0-31.0) H 33.5 PG (27.0-31.0) H Mean Corpuscular Hemoglobin Concent 34.3 G/DL (32.0-36.0) 33.3 G/DL (32.0-36.0) Red Cell Distribution Width 13.9 % (11.6-14.8) 13.7 % (11.6-14.8) Platelet Count 206 K/UL (150-450) 212 K/UL (150-450) Mean Platelet Volume 5.7 FL (6.5-10.1) L 6.3 FL (6.5-10.1) L Neutrophils (%) (Auto) 85.7 % (45.0-75.0) H % (45.0-75.0) Lymphocytes (%) (Auto) 6.0 % (20.0-45.0) L % (20.0-45.0) Monocytes (%) (Auto) 7.0 % (1.0-10.0) % (1.0-10.0) Eosinophils (%) (Auto) 0.5 % (0.0-3.0) % (0.0-3.0) Basophils (%) (Auto) 0.7 % (0.0-2.0) % (0.0-2.0) Prothrombin Time 10.0 SEC (9.30-11.50) Prothromb Time International Ratio 1.0 (0.9-1.1) Activated Partial Thromboplast Time 21 SEC (23-33) L Sodium Level 143 mEQ/L (135-145) 140 mEQ/L (135-145) Potassium Level 4.2 mEQ/L (3.4-4.9) 3.1 mEQ/L (3.4-4.9) L Chloride Level 100 mEQ/L (98-107) 101 mEQ/L (98-107) Carbon Dioxide Level 28 mEQ/L (20-30) 25 mEQ/L (20-30) Anion Gap 15 (5-15) 14 (5-15) Blood Urea Nitrogen 20 mg/dL (7-23) 14 mg/dL (7-23) Creatinine 0.6 mg/dL (0.5-0.9) 0.5 mg/dL (0.5-0.9) Estimat Glomerular Filtration Rate > 60 mL/min (>60) > 60 mL/min (>60) Glucose Level 117 mg/dL (74-106) H 117 mg/dL (74-106) H Lactic Acid Level 1.10 mmol/L (0.66-2.22) Calcium Level 9.1 mg/dL (8.6-10.2) 8.6 mg/dL (8.6-10.2) Total Bilirubin 0.8 mg/dL (0.0-1.2) 0.7 mg/dL (0.0-1.2) Aspartate Amino Transf (AST/SGOT) 106 U/L (5-40) H 85 U/L (5-40) H Alanine Aminotransferase (ALT/SGPT) 143 U/L (3-33) H 134 U/L (3-33) H Alkaline Phosphatase 125 U/L (35-104) H 103 U/L (35-104) Total Creatine Kinase 25 U/L (26-140) L Creatine Kinase MB 2.8 ng/mL (< 3.8) Creatine Kinase MB Relative Index 11.2 Troponin I < 0.30 ng/mL (<=0.30) Pro-B-Type Natriuretic Peptide 2890 pg/mL (0-125) H Total Protein 5.9 g/dL (6.6-8.7) L 5.5 g/dL (6.6-8.7) L Albumin 3.9 g/dL (3.5-5.2) 3.5 g/dL (3.5-5.2) Globulin 2.0 g/dL 2.0 g/dL Albumin/Globulin Ratio 1.9 (1.0-2.7) 1.7 (1.0-2.7) Lipase 25 U/L (< 60) Urine Color Green Urine Appearance Slightly cloudy Urine pH 5 (4.5-8.0) Urine Specific [place] 1.020 (1.005-1.035) Urine Protein 2+ (NEGATIVE) H Urine Glucose (UA) Negative (NEGATIVE) Urine Ketones 2+ (NEGATIVE) H Urine Occult Blood 1+ (NEGATIVE) H Urine Nitrite Negative (NEGATIVE) Urine Bilirubin 1+ (NEGATIVE) H Urine Ictotest Negative Urine Urobilinogen 1 MG/DL (0.0-1.0) H Urine Leukocyte Esterase 3+ (NEGATIVE) H Urine RBC 2-4 /HPF (0 - 2) H Urine WBC 40-60 /HPF (0 - 2) H Urine Squamous Epithelial Cells None /LPF (NONE/OCC) Urine Bacteria Few /HPF (NONE) Differential Total Cells Counted 100 Neutrophils % (Manual) 81 % (45-75) H Lymphocytes % (Manual) 12 % (20-45) L Monocytes % (Manual) 7 % (1-10) Eosinophils % (Manual) 0 % (0-3) Basophils % (Manual) 0 % (0-2) Band Neutrophils 0 % (0-8) Platelet Estimate Adequate Platelet Morphology Normal Hypochromasia 1+ Macrocytosis 1+ Thyroid Stimulating Hormone (TSH) 0.220 uIU/mL (0.300-4.500) ASSESSMENT/RECS: # Metastatic melanoma with metastases to the brain - recent enlargement on imaging of her brain at her [facility] scan. ---> Originally started as Stage II melanoma in 2011, had surgical resection -- > spread 2013 to lymph nodes, underwent lymphadenectomy ---> received decarbazinum chemo in 2014, then temodar ---> rein 2016 received carboplatin/ paclitaxel --> has pulmonary disease on imaging from before 08/2016, wide metastatic spread of disease, has undergone gamma kinfe surgery at [facility], will see [facility] shortly # Anemia 2/2 chronic disease # Bilateral pna - on abx # AMS - likely related to brain metastatis # Hypoxia. # Dyspnea. # Hypotension. # Hydrocephalus. # Metabolic encephalopathy. # Hemorrhagic cerebrovascular accident. Yo Madsen. May 05, 2017 17:51
--- NOTE | 2017-05-05 23:26 | Consultation ---
Consult Note Consult Note [id number] SCOT BOYER M.D. May 05, 2017 23:26
[2017-05-06] MEDS ORDERED: Naloxone 0.4mg/ml Inj IV PRN (00:15)
--- NOTE | 2017-05-06 00:45 | Consultation ---
DATE OF CONSULTATION: INFECTIOUS DISEASE CONSULT CONSULTING PHYSICIAN: Momo Cox M.D. REFERRING PHYSICIAN: 1. Justo Marin M.D. 2. Guillermina Spear M.D. REASON FOR CONSULTATION: Evaluation of the patient for sepsis, pneumonia, and antibiotic management. HISTORY OF PRESENT ILLNESS: The patient is a 61-year-old female with multiple medical problems, as listed below, who was admitted to this medical center for respiratory distress and altered level of consciousness. The patient has been admitted with the impression of sepsis and probable pneumonia. An Infectious Disease consultations has been requested for further evaluation of the patient and antibiotic management. The patient is not able to provide detailed information. Information is gathered through the chart and speaking to the staff. PAST MEDICAL HISTORY: 1. Melanoma with mets to the brain. 2. History of hydrocephalus. 3. History of encephalopathy. 4. Cerebrovascular accident. 5. Hypothyroidism. 6. Stage II decubitus. 7. Status post craniotomy. MEDICATIONS: Zosyn. ALLERGIES: No known drug allergies. SOCIAL HISTORY: No history of alcohol or drug abuse. REVIEW OF SYSTEMS: Unobtainable. PHYSICAL EXAMINATION: VITAL SIGNS: Temperature 97 degrees, blood pressure 130/82, pulse 86, and respiratory rate 18. HEENT: Mild pale conjunctivae. No icterus. NECK: No lymphadenopathy. CHEST: Coarse breathing sounds. HEART: S1 and S2. ABDOMEN: Soft and nontender. EXTREMITIES: No cyanosis. NEUROLOGIC: Lethargic. LABORATORY DATA: White blood cells 3.3, hemoglobin 10.9, and platelets 212,000. UA, 40 to 60 white blood cells. BUN is 14 and creatinine 0.4. AST 85, ALT 112, and alkaline phosphatase 103. Ultrasound of the abdomen, gallbladder sludge and wall thickening. Chest x-ray showed mild infiltrate versus atelectasis. ASSESSMENT: The patient is a 61-year-old female with multiple medical problems, who has been admitted to this medical center with, 1. Sepsis. 2. Transaminitis, improving. 3. Pyuria, probable urinary tract infection. 4. Rule out bacteremia. 5. Probable cholecystitis. PLAN: 1. We will continue the patient on IV Zosyn. 2. Monitor CBC. 3. Monitor BMP. 4. Monitor cultures (blood, urine, and sputum). 5. HIDA scan, rule out cholecystitis. 6. Monitor liver function tests. 7. Based on the patient's clinical course and laboratories, we will do further recommendations. Thank you, Dr. Spear, for allowing me to participate in the care of this patient. I will follow the patient with you during this hospitalization. Momo Cox M.D. DR: BEVERLY JOB#: [id number] CC:
[2017-05-06] MEDS: D5NS 1,000 ML IV SCH ×2 (01:20→13:35)
[2017-05-06 04:00] VITALS: BP 149/92
[2017-05-06] MEDS ORDERED: Mylanta II UD 30ml ORAL PRN (04:45)
[2017-05-06] MEDS: Piperacillin/Tazobactam 3.375 GM in D5W 110 ML IVPB SCH ×3 (05:45→22:53)
[2017-05-06 06:29] LABS: BASOPHILS % (AUTO) 1.5 % (0.0-2.0); EOSINOPHILS % (AUTO) 0.9 % (0.0-3.0); LYMPHOCYTES % (AUTO) 12.5 % (20.0-45.0); MEAN CORPUSCULAR HEMOGLOBIN 32.9 PG (27.0-31.0); MEAN CORPUSCULAR HGB CONC 33.1 G/DL (32.0-36.0); MEAN CORPUSCULAR VOLUME 99 FL (80-99); MEAN PLATELET VOLUME 5.7 FL (6.5-10.1); MONOCYTES % (AUTO) 10.5 % (1.0-10.0); NEUTROPHILS % (AUTO) 74.6 % (45.0-75.0); PLATELET COUNT 230 K/UL (150-450); RED BLOOD COUNT 3.46 M/UL (4.20-5.40); RED CELL DISTRIBUTION WIDTH 13.2 % (11.6-14.8); WHITE BLOOD COUNT 3.9 K/UL (4.8-10.8)
[2017-05-06 06:48] LABS: ANION GAP 15 (5-15); CALCIUM 8.4 mg/dL (8.6-10.2); CARBON DIOXIDE 24 mEQ/L (20-30); CHLORIDE 99 mEQ/L (98-107); CREATININE 0.4 mg/dL (0.5-0.9); GLOMERULAR FILTRATION RATE > 60 mL/min (>60); HEMOLYSIS 4; POTASSIUM 3.4 mEQ/L (3.4-4.9); SODIUM 138 mEQ/L (135-145)
[2017-05-06 08:14] VITALS: BP 144/87
[2017-05-06] MEDS: Heparin 5000 units/ml inj SUBQ SCH ×2 (08:33→20:26)
--- NOTE | 2017-05-06 09:09 | Cardiology Report ---
APPROVED REPORT EXAM: Two-dimensional and M-mode echocardiogram with Doppler and color Doppler. INDICATION Congestive Heart Failure M-Mode DIMENSIONS IVSd1.2 (0.7-1.1cm)Left Atrium (MM)2.6 (1.6-4.0cm) LVDd3.9 (3.5-5.6cm)Aortic Root3.5 (2.0-3.7cm) PWd1.0 (0.7-1.1cm)Aortic Cusp Exc.2.1 (1.5-2.0cm) LVDs2.2 (2.5-4.0cm) PWs1.2 cm tech difficult study , endocardium is poorly defined Normal left ventricular chamber size, systolic function and wall motion to the extent visualized Left ventricular ejection fraction estimated to be 65-70 %. Borderline mild left ventricular hypertrophy. Anterior Echo-free space, may be due to pericardial fat or effusion. All other cardiac chamber sizes are within normal limits. Mild focal aortic valve sclerosis with adequate cusp excursion. Thickened mitral valve leaflets with normal excursion. Mitral annulus and aortic root calcification. Pulmonic valve not well visualized. Normal tricuspid valve structure. IVC at normal size with physiologic collapse. A color flow and spectral Doppler study was performed and revealed: Trace mitral regurgitation. Mitral diastolic velocities suggest reduced left ventricular relaxation c/w mild LV diastolic dysfunction (Grade I). Trace tricuspid regurgitation. Tricuspid systolic velocities suggests peak right ventricular systolic pressure of 30 mmHg.
--- NOTE | 2017-05-06 09:25 | General Progress Note ---
Assessment/Plan Assessment/Plan (1) Metastatic Melanoma to brain (2) Intractable pain (3) Sacral decubitus ulcer Patient will be continued on Percocet, Dilaudid and Fentanyl patch. Pt was d/w Dr. Avelar and he concurred. Subjective Date patient seen: May 06, 2017 Time patient seen: 07:15 - am ROS Limited/Unobtainable: Yes Allergies: Coded Allergies: No Known Allergies (Unverified , 05/04/17) Subjective Patient is in bed in no acute distress or signs of pain, D/w nurse and pt has received the Dilaudid as needed. Objective Last 24 Hour Vital Signs Date Time Temp Pulse Resp B/P Pulse Ox O2 Delivery O2 Flow Rate FiO2 05/06/17 08:14 97.2 103 18 144/87 97 Room Air 05/06/17 04:00 97.0 98 16 149/92 98 Room Air 05/05/17 23:56 97.2 91 17 153/92 95 Room Air 05/05/17 22:00 16 96 Room Air 05/05/17 20:00 97.0 103 20 130/82 97 Nasal Cannula 2.0 05/05/17 18:58 96.3 05/05/17 18:00 16 96 Room Air 05/05/17 17:23 96.3 05/05/17 15:43 96.3 105 18 123/83 95 Room Air 05/05/17 14:00 16 96 Room Air 05/05/17 11:52 104 05/05/17 11:52 96.4 93 18 128/83 96 05/05/17 10:47 96.6 05/05/17 10:15 96.6 05/05/17 10:00 16 95 Room Air Intake and Output 05/05/17 05/06/17 19:00 07:00 Intake Total 1395.0 ml 832.5 ml Output Total 700 ml 1100 ml Balance 695.0 ml -267.5 ml Intake Oral 360 ml IV Total 1035.0 ml 832.5 ml Output Urine Total 700 ml 1100 ml # Bowel Movements 1 Laboratory Tests 05/06/17 05:50: White Blood Count 3.9L, Red Blood Count 3.46L, Hemoglobin 11.4L, Hematocrit 34.3L, Mean Corpuscular Volume 99, Mean Corpuscular Hemoglobin 32.9H, Mean Corpuscular Hemoglobin Concent 33.1, Red Cell Distribution Width 13.2, Platelet Count 230, Mean Platelet Volume 5.7L, Neutrophils (%) (Auto) 74.6, Lymphocytes ( %) (Auto) 12.5L, Monocytes (%) (Auto) 10.5H, Eosinophils (%) (Auto) 0.9, Basophils (%) (Auto) 1.5, Sodium Level 138, Potassium Level 3.4, Chloride Level 99, Carbon Dioxide Level 24, Anion Gap 15, Blood Urea Nitrogen 6L, Creatinine 0.4L, Estimat Glomerular Filtration Rate > 60, Glucose Level 139H, Calcium Level 8.4L, Pro-B-Type Natriuretic Peptide 2958H Height (Feet): 4 Height (Inches): 11.00 Weight (Pounds): 103 General Appearance: no apparent distress EENT: PERRL/EOMI Neck: non-tender, normal alignment Respiratory/Chest: decreased breath sounds Abdomen: soft Extremities: swelling Edema: trace edema Neurologic: responsive Skin: warm/dry LEIGHA RICHARDSON May 06, 2017 09:25
--- NOTE | 2017-05-06 10:50 | Infectious Diseases Prog Note ---
Assessment/Plan Assessment/Plan Evaluation of the patient for sepsis, pneumonia, and antibiotic management. HISTORY OF PRESENT ILLNESS: The patient is a 61-year-old female with multiple medical problems, as listed below, who was admitted to this medical center for respiratory distress and altered level of consciousness. The patient has been admitted with the impression of sepsis and probable pneumonia. An Infectious Disease consultations has been requested for further evaluation of the patient and antibiotic management. The patient is not able to provide detailed information. Information is gathered through the chart and speaking to the staff. A: The patient is a 61-year-old female with probable Sepsis Pyuria, probable urinary tract infection. UCX GNR , 10 K ( delayed Cx ) Transaminitis, improving Ro cholecystitis. Ultrasound : gallbladder sludge and wall thickening ? Pna Chest x-ray : mild infiltrate versus atelectasis Melanoma with mets to the brain History of hydrocephalus History of encephalopathy Cerebrovascular accident Hypothyroidism Stage II decubitus Status post craniotomy . PLAN: continue the patient on IV Zosyn d # 2 Monitor CBC. Monitor BMP. Monitor cultures (blood, urine, and sputum). HIDA scan, rule out cholecystitis. Monitor liver function test Subjective Constitutional: Denies: anorexia, chills, drenching sweats, fatigue, fever, no symptoms, other Allergies: Coded Allergies: No Known Allergies (Unverified , 05/04/17) Objective Vital Signs Last 24 Hour Vital Signs Date Time Temp Pulse Resp B/P Pulse Ox O2 Delivery O2 Flow Rate FiO2 05/06/17 08:14 97.2 103 18 144/87 97 Room Air 05/06/17 04:00 97.0 98 16 149/92 98 Room Air 05/05/17 23:56 97.2 91 17 153/92 95 Room Air 05/05/17 22:00 16 96 Room Air 05/05/17 20:00 97.0 103 20 130/82 97 Nasal Cannula 2.0 05/05/17 18:58 96.3 05/05/17 18:00 16 96 Room Air 05/05/17 17:23 96.3 05/05/17 15:43 96.3 105 18 123/83 95 Room Air 05/05/17 14:00 16 96 Room Air 05/05/17 11:52 104 05/05/17 11:52 96.4 93 18 128/83 96 05/05/17 10:47 96.6 Height (Feet): 4 Height (Inches): 11.00 Weight (Pounds): 103 HEENT: mucous membranes moist Respiratory/Chest: no accessory muscle use Cardiovascular: regularly irregular Abdomen: no organomegaly Microbiology Date/Time Source Procedure Growth Status 05/04/17 21:45 Blood Blood Culture - Preliminary NO GROWTH AFTER 24 HOURS Resulted 05/04/17 21:30 Blood Blood Culture - Preliminary NO GROWTH AFTER 24 HOURS Resulted 05/05/17 06:00 Urine,Catheterized Urine Culture - Preliminary Gram Negative Bacillus 1 Resulted 05/04/17 23:16 Rectum VRE Culture - Final NO VANCOMYCIN RESISTANT ENTEROCOCCUS ... Complete Laboratory Tests Test 05/06/17 05:50 White Blood Count 3.9 K/UL (4.8-10.8) L Red Blood Count 3.46 M/UL (4.20-5.40) L Hemoglobin 11.4 G/DL (12.0-16.0) L Hematocrit 34.3 % (37.0-47.0) L Mean Corpuscular Volume 99 FL (80-99) Mean Corpuscular Hemoglobin 32.9 PG (27.0-31.0) H Mean Corpuscular Hemoglobin Concent 33.1 G/DL (32.0-36.0) Red Cell Distribution Width 13.2 % (11.6-14.8) Platelet Count 230 K/UL (150-450) Mean Platelet Volume 5.7 FL (6.5-10.1) L Neutrophils (%) (Auto) 74.6 % (45.0-75.0) Lymphocytes (%) (Auto) 12.5 % (20.0-45.0) L Monocytes (%) (Auto) 10.5 % (1.0-10.0) H Eosinophils (%) (Auto) 0.9 % (0.0-3.0) Basophils (%) (Auto) 1.5 % (0.0-2.0) Sodium Level 138 mEQ/L (135-145) Potassium Level 3.4 mEQ/L (3.4-4.9) Chloride Level 99 mEQ/L (98-107) Carbon Dioxide Level 24 mEQ/L (20-30) Anion Gap 15 (5-15) Blood Urea Nitrogen 6 mg/dL (7-23) L Creatinine 0.4 mg/dL (0.5-0.9) L Estimat Glomerular Filtration Rate > 60 mL/min (>60) Glucose Level 139 mg/dL (74-106) H Calcium Level 8.4 mg/dL (8.6-10.2) L Pro-B-Type Natriuretic Peptide 2958 pg/mL (0-125) H Current Medications Medications (Trade) Dose Ordered Sig/[place] Route PRN Reason Start Time Stop Time Status Last Admin Dose Admin Acetaminophen (Tylenol) 650 mg Q4H PRN ORAL fever 05/06/17 02:45 06/05/17 02:44 Al Hydroxide/Mg Hydroxide (Mylanta II) 30 ml Q6H PRN ORAL dyspepsia 05/06/17 04:45 06/05/17 04:44 Dextrose (Dextrose 50%) STAT PRN IV Hypoglycemia 05/06/17 22:45 06/05/17 22:44 Dextrose/Sodium Chloride 1,000 ml @ 75 mls/hr [id number] IV 05/06/17 00:15 06/05/17 00:14 05/06/17 01:20 Fentanyl (Duragesic) 1 patch Q72H TDERMAL 05/08/17 10:15 05/15/17 10:14 Heparin Sodium (Porcine) (Heparin 5000 units/ml) 5,000 units EVERY 12 HOURS SUBQ 05/06/17 09:00 06/05/17 08:59 05/06/17 08:33 Hydromorphone HCl (Dilaudid) 2 mg Q3H PRN IVP Severe Pain (Pain Scale 7-10) 05/06/17 02:00 05/13/17 01:59 05/06/17 08:36 Levetiracetam (Keppra) 500 mg Q12HR ORAL 05/06/17 09:00 06/05/17 08:59 Lorazepam (Ativan 2mg/ml 1ml) 0.5 mg Q4H PRN IV For Anxiety 05/06/17 02:45 05/13/17 02:44 Naloxone HCl (Narcan) 0.1 mg PRN IV Sedation scale 3 or 4 05/06/17 00:15 Ondansetron HCl (Zofran) 4 mg Q6H PRN IVP Nausea & Vomiting 05/06/17 04:45 06/05/17 04:44 Oxycodone/ Acetaminophen (Percocet 10/325) 1 tab Q6H PRN ORAL Moderate Pain (Pain Scale 4-6) 05/06/17 04:00 05/13/17 03:59 Piperacillin Sod/ Tazobactam Sod/ Dextrose (Zosyn/D5W) 110 ml @ 27.5 mls/hr EVERY 8 HOURS IVPB 05/06/17 06:00 05/11/17 05:59 05/06/17 05:45 Polyethylene Glycol (Miralax) 17 gm HSPRN PRN ORAL Constipation 05/06/17 22:45 06/05/17 22:44 Zolpidem Tartrate (Ambien) 5 mg HSPRN PRN ORAL Insomnia 05/06/17 22:45 06/05/17 22:44 SCOT BOYER M.D. May 06, 2017 10:49
[2017-05-06] MEDS ORDERED: D5NS 1000ml IV ONE (12:39)
[2017-05-06] MEDS ORDERED: Tubing IV Secondary IV ONE (12:39)
[2017-05-06] MEDS ORDERED: NS 275ml ONE (12:39)
--- NOTE | 2017-05-06 15:03 | Pulmonology Progress Note ---
Assessment/Plan Problems: (1) Pyuria (2) UTI (urinary tract infection) (3) Dyspnea (4) Hypotension (5) Melanoma (6) Cerebrovascular accident (CVA) (7) At high risk for aspiration Assessment/Plan check cultures continue antibiotics social service input appreciated. Subjective ROS Limited/Unobtainable: Yes Allergies: Coded Allergies: No Known Allergies (Unverified , 05/04/17) Objective Last 24 Hour Vital Signs Date Time Temp Pulse Resp B/P Pulse Ox O2 Delivery O2 Flow Rate FiO2 05/06/17 08:14 97.2 103 18 144/87 97 Room Air 05/06/17 04:00 97.0 98 16 149/92 98 Room Air 05/05/17 23:56 97.2 91 17 153/92 95 Room Air 05/05/17 22:00 16 96 Room Air 05/05/17 20:00 97.0 103 20 130/82 97 Nasal Cannula 2.0 05/05/17 18:58 96.3 05/05/17 18:00 16 96 Room Air 05/05/17 17:23 96.3 05/05/17 15:43 96.3 105 18 123/83 95 Room Air Intake and Output 05/05/17 05/06/17 19:00 07:00 Intake Total 1395.0 ml 832.5 ml Output Total 700 ml 1100 ml Balance 695.0 ml -267.5 ml Intake Oral 360 ml IV Total 1035.0 ml 832.5 ml Output Urine Total 700 ml 1100 ml # Bowel Movements 1 General Appearance: no acute distress HEENT: normocephalic, atraumatic Respiratory/Chest: chest wall non-tender, lungs clear Breasts: no masses Cardiovascular: normal peripheral pulses Abdomen: normal bowel sounds, soft, non tender Genitourinary: normal external genitalia Extremities: no cyanosis Skin: no lesions Neurologic/Psychiatric: lokie engineer II-XII grossly normal Microbiology Date/Time Source Procedure Growth Status 05/04/17 21:45 Blood Blood Culture - Preliminary NO GROWTH AFTER 24 HOURS Resulted 05/04/17 21:30 Blood Blood Culture - Preliminary NO GROWTH AFTER 24 HOURS Resulted 05/05/17 06:00 Urine,Catheterized Urine Culture - Preliminary Gram Negative Bacillus 1 Resulted 05/04/17 23:16 Rectum VRE Culture - Final NO VANCOMYCIN RESISTANT ENTEROCOCCUS ... Complete Laboratory Tests 05/06/17 05:50: White Blood Count 3.9L, Red Blood Count 3.46L, Hemoglobin 11.4L, Hematocrit 34.3L, Mean Corpuscular Volume 99, Mean Corpuscular Hemoglobin 32.9H, Mean Corpuscular Hemoglobin Concent 33.1, Red Cell Distribution Width 13.2, Platelet Count 230, Mean Platelet Volume 5.7L, Neutrophils (%) (Auto) 74.6, Lymphocytes ( %) (Auto) 12.5L, Monocytes (%) (Auto) 10.5H, Eosinophils (%) (Auto) 0.9, Basophils (%) (Auto) 1.5, Sodium Level 138, Potassium Level 3.4, Chloride Level 99, Carbon Dioxide Level 24, Anion Gap 15, Blood Urea Nitrogen 6L, Creatinine 0.4L, Estimat Glomerular Filtration Rate > 60, Glucose Level 139H, Calcium Level 8.4L, Pro-B-Type Natriuretic Peptide 2958H Current Medications Medications (Trade) Dose Ordered Sig/Hamlet Route PRN Reason Start Time Stop Time Status Last Admin Dose Admin Acetaminophen (Tylenol) 650 mg Q4H PRN ORAL fever 05/06/17 02:45 06/05/17 02:44 Al Hydroxide/Mg Hydroxide (Mylanta II) 30 ml Q6H PRN ORAL dyspepsia 05/06/17 04:45 06/05/17 04:44 Dextrose (Dextrose 50%) STAT PRN IV Hypoglycemia 05/06/17 22:45 06/05/17 22:44 Dextrose/Sodium Chloride 1,000 ml @ 75 mls/hr [id number] IV 05/06/17 00:15 06/05/17 00:14 05/06/17 01:20 Fentanyl (Duragesic) 1 patch Q72H TDERMAL 05/08/17 10:15 05/15/17 10:14 Heparin Sodium (Porcine) (Heparin 5000 units/ml) 5,000 units EVERY 12 HOURS SUBQ 05/06/17 09:00 06/05/17 08:59 05/06/17 08:33 Hydromorphone HCl (Dilaudid) 2 mg Q3H PRN IVP Severe Pain (Pain Scale 7-10) 05/06/17 02:00 05/13/17 01:59 05/06/17 14:22 Levetiracetam (Keppra) 500 mg Q12HR ORAL 05/06/17 09:00 06/05/17 08:59 Lorazepam (Ativan 2mg/ml 1ml) 0.5 mg Q4H PRN IV For Anxiety 05/06/17 02:45 05/13/17 02:44 Naloxone HCl (Narcan) 0.1 mg PRN IV Sedation scale 3 or 4 05/06/17 00:15 Ondansetron HCl (Zofran) 4 mg Q6H PRN IVP Nausea & Vomiting 05/06/17 04:45 06/05/17 04:44 Oxycodone/ Acetaminophen (Percocet 10/325) 1 tab Q6H PRN ORAL Moderate Pain (Pain Scale 4-6) 05/06/17 04:00 05/13/17 03:59 Piperacillin Sod/ Tazobactam Sod/ Dextrose (Zosyn/D5W) 110 ml @ 27.5 mls/hr EVERY 8 HOURS IVPB 05/06/17 06:00 05/11/17 05:59 05/06/17 14:23 Polyethylene Glycol (Miralax) 17 gm HSPRN PRN ORAL Constipation 05/06/17 22:45 06/05/17 22:44 Zolpidem Tartrate (Ambien) 5 mg HSPRN PRN ORAL Insomnia 05/06/17 22:45 06/05/17 22:44 BARB SHAH May 06, 2017 15:03
[2017-05-06 15:41] VITALS: BP 142/99
[2017-05-06] MEDS ORDERED: Lactulose 20gm/30ml UDC ORAL PRN (16:00)
--- NOTE | 2017-05-06 16:51 | Diagnostic Imaging Report ---
Indication: Abdominal pain, gallbladder sludge and wall thickening on recent ultrasound Technique: IV administration of 6.2 mCi 99M technetium Choletec. Images obtained over the right upper quadrant Comparison: Reference made to ultrasound dated 05/04/2017 Findings: There is prompt tracer uptake within the liver. Extrahepatic bile ducts are initially visualized at 9 minutes. Tracer within small bowel is demonstrated at 14 minutes. Gallbladder activity begins to appear at 9 minutes. Impression: Negative. No evidence of cystic duct obstruction or common bile duct obstruction
--- NOTE | 2017-05-06 18:14 | Internal Med Progress Note ---
Subjective Date of Service: May 06, 2017 Physician Name Justo Marin Attending Physician Tarun Ortiz MD Current Medications Medications (Trade) Dose Ordered Sig/Hamlet Route PRN Reason Start Time Stop Time Status Last Admin Dose Admin Acetaminophen (Tylenol) 650 mg Q4H PRN ORAL fever 05/06/17 02:45 06/05/17 02:44 Al Hydroxide/Mg Hydroxide (Mylanta II) 30 ml Q6H PRN ORAL dyspepsia 05/06/17 04:45 06/05/17 04:44 Ciprofloxacin (Ciloxan Opth Soln) 1 drop Q6HR RIGHT EYE 05/06/17 18:00 05/13/17 17:59 Dextrose (Dextrose 50%) STAT PRN IV Hypoglycemia 05/06/17 22:45 06/05/17 22:44 Dextrose/Sodium Chloride 1,000 ml @ 75 mls/hr [id number] IV 05/06/17 00:15 06/05/17 00:14 05/06/17 01:20 Fentanyl (Duragesic) 1 patch Q72H TDERMAL 05/08/17 10:00 05/15/17 09:59 Heparin Sodium (Porcine) (Heparin 5000 units/ml) 5,000 units EVERY 12 HOURS SUBQ 05/06/17 09:00 06/05/17 08:59 05/06/17 08:33 Hydromorphone HCl (Dilaudid) 2 mg Q2H PRN IVP Severe Pain (Pain Scale 7-10) 05/06/17 16:00 05/13/17 15:59 05/06/17 16:30 Lactulose (Cephulac) 30 gm FOUR TIMES A DAY PRN ORAL constipation 05/06/17 16:00 06/05/17 15:59 Levetiracetam (Keppra) 500 mg Q12HR ORAL 05/06/17 09:00 06/05/17 08:59 Lorazepam (Ativan 2mg/ml 1ml) 0.5 mg Q4H PRN IV For Anxiety 05/06/17 02:45 05/13/17 02:44 Naloxone HCl (Narcan) 0.1 mg PRN IV Sedation scale 3 or 4 05/06/17 00:15 Ondansetron HCl (Zofran) 4 mg Q6H PRN IVP Nausea & Vomiting 05/06/17 04:45 06/05/17 04:44 05/06/17 15:27 Oxycodone/ Acetaminophen (Percocet 10/325) 1 tab Q6H PRN ORAL Moderate Pain (Pain Scale 4-6) 05/06/17 04:00 05/13/17 03:59 Piperacillin Sod/ Tazobactam Sod/ Dextrose (Zosyn/D5W) 110 ml @ 27.5 mls/hr EVERY 8 HOURS IVPB 05/06/17 06:00 05/11/17 05:59 05/06/17 14:23 Polyethylene Glycol (Miralax) 17 gm HSPRN PRN ORAL Constipation 05/06/17 22:45 06/05/17 22:44 Zolpidem Tartrate (Ambien) 5 mg HSPRN PRN ORAL Insomnia 05/06/17 22:45 06/05/17 22:44 Allergies: Coded Allergies: No Known Allergies (Unverified , 05/04/17) ROS Limited/Unobtainable: Yes Subjective 61 YO F with metastatic melanoma admitted with dyspnea and hypoxia. Now bibasilar pneumonia. Cover for Int Med-Dr Ortiz. 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 Skin: normal pigmentation, warm/dry Laboratory Tests Test 05/06/17 05:50 White Blood Count 3.9 K/UL (4.8-10.8) L Red Blood Count 3.46 M/UL (4.20-5.40) L Hemoglobin 11.4 G/DL (12.0-16.0) L Hematocrit 34.3 % (37.0-47.0) L Mean Corpuscular Volume 99 FL (80-99) Mean Corpuscular Hemoglobin 32.9 PG (27.0-31.0) H Mean Corpuscular Hemoglobin Concent 33.1 G/DL (32.0-36.0) Red Cell Distribution Width 13.2 % (11.6-14.8) Platelet Count 230 K/UL (150-450) Mean Platelet Volume 5.7 FL (6.5-10.1) L Neutrophils (%) (Auto) 74.6 % (45.0-75.0) Lymphocytes (%) (Auto) 12.5 % (20.0-45.0) L Monocytes (%) (Auto) 10.5 % (1.0-10.0) H Eosinophils (%) (Auto) 0.9 % (0.0-3.0) Basophils (%) (Auto) 1.5 % (0.0-2.0) Sodium Level 138 mEQ/L (135-145) Potassium Level 3.4 mEQ/L (3.4-4.9) Chloride Level 99 mEQ/L (98-107) Carbon Dioxide Level 24 mEQ/L (20-30) Anion Gap 15 (5-15) Blood Urea Nitrogen 6 mg/dL (7-23) L Creatinine 0.4 mg/dL (0.5-0.9) L Estimat Glomerular Filtration Rate > 60 mL/min (>60) Glucose Level 139 mg/dL (74-106) H Calcium Level 8.4 mg/dL (8.6-10.2) L Pro-B-Type Natriuretic Peptide 2958 pg/mL (0-125) H Microbiology Date/Time Source Procedure Growth Status 05/04/17 21:45 Blood Blood Culture - Preliminary NO GROWTH AFTER 24 HOURS Resulted 05/04/17 21:30 Blood Blood Culture - Preliminary NO GROWTH AFTER 24 HOURS Resulted 05/05/17 06:00 Urine,Catheterized Urine Culture - Preliminary Gram Negative Bacillus 1 Resulted 05/04/17 23:16 Rectum VRE Culture - Final NO VANCOMYCIN RESISTANT ENTEROCOCCUS ... Complete Intake and Output 05/05/17 05/06/17 19:00 07:00 Intake Total 1395.0 ml 832.5 ml Output Total 700 ml 1100 ml Balance 695.0 ml -267.5 ml Intake Oral 360 ml IV Total 1035.0 ml 832.5 ml Output Urine Total 700 ml 1100 ml # Bowel Movements 1 Assessment/Plan Problem List: (1) Pneumonia Assessment & Plan: See pulmonary and Inf Dis note. Cont zosyn (2) Sepsis Assessment & Plan: Await blood cultures. See Inf Dis note. Cont zosyn (3) Altered mental status (4) Metabolic encephalopathy (5) Hypoxemia (6) Metastatic melanoma of brain Assessment & Plan: See onc note. (7) Hydrocephalus (8) Hemorrhagic cerebrovascular accident (CVA) (9) Hypothyroidism (10) Decubitus ulcer of sacral region, stage 2 (11) Hypotension (12) Elevated transaminase level Assessment & Plan: HIDA negative Status: not improved Assessment/Plan Prognosis guarded; D/W daughter and JUSTO Fournier May 06, 2017 18:14
[2017-05-06] MEDS: LORazepam Inj 2mg/ml 1ml IV PRN (18:39)
[2017-05-06] MEDS: Ciprofloxacin Opth Soln RIGHT EYE SCH (18:41)
--- NOTE | 2017-05-06 22:04 | General Progress Note ---
Assessment/Plan Assessment/Plan ASSESSMENT/RECS: # Metastatic melanoma with metastases to the brain - recent enlargement on imaging of her brain at her [facility] scan. ---> Originally started as Stage II melanoma in 2011, had surgical resection -- > spread 2013 to lymph nodes, underwent lymphadenectomy ---> received decarbazinum chemo in 2014, then temodar ---> rein 2016 received carboplatin/ paclitaxel --> has pulmonary disease on imaging from before 08/2016, wide metastatic spread of disease, has undergone gamma kinfe surgery at [facility], will see [facility] shortly # Anemia 2/2 chronic disease # Bilateral pna - on abx # AMS - likely related to brain metastases # Hypoxia. # Dyspnea. # Hypotension. # Hydrocephalus. # Metabolic encephalopathy. # Hemorrhagic cerebrovascular accident. Subjective Constitutional: Reports: weakness HEENT: Reports: no symptoms Cardiovascular: Reports: no symptoms Respiratory: Reports: no symptoms Gastrointestinal/Abdominal: Reports: no symptoms Genitourinary: Reports: no symptoms Neurologic/Psychiatric: Reports: no symptoms Endocrine: Reports: no symptoms Hematologic/Lymphatic: Reports: anemia Allergies: Coded Allergies: No Known Allergies (Unverified , 05/04/17) Subjective pt having breakthrough pain, meds adjusted, no SOB, a/ox1, daughter at bedside Objective Last 24 Hour Vital Signs Date Time Temp Pulse Resp B/P Pulse Ox O2 Delivery O2 Flow Rate FiO2 05/06/17 15:41 96.5 91 19 142/99 97 Room Air 05/06/17 08:14 97.2 103 18 144/87 97 Room Air 05/06/17 04:00 97.0 98 16 149/92 98 Room Air 05/05/17 23:56 97.2 91 17 153/92 95 Room Air Intake and Output 05/05/17 05/06/17 19:00 07:00 Intake Total 1395.0 ml 832.5 ml Output Total 700 ml 1100 ml Balance 695.0 ml -267.5 ml Intake Oral 360 ml IV Total 1035.0 ml 832.5 ml Output Urine Total 700 ml 1100 ml # Bowel Movements 1 Laboratory Tests 05/06/17 05:50: White Blood Count 3.9L, Red Blood Count 3.46L, Hemoglobin 11.4L, Hematocrit 34.3L, Mean Corpuscular Volume 99, Mean Corpuscular Hemoglobin 32.9H, Mean Corpuscular Hemoglobin Concent 33.1, Red Cell Distribution Width 13.2, Platelet Count 230, Mean Platelet Volume 5.7L, Neutrophils (%) (Auto) 74.6, Lymphocytes ( %) (Auto) 12.5L, Monocytes (%) (Auto) 10.5H, Eosinophils (%) (Auto) 0.9, Basophils (%) (Auto) 1.5, Sodium Level 138, Potassium Level 3.4, Chloride Level 99, Carbon Dioxide Level 24, Anion Gap 15, Blood Urea Nitrogen 6L, Creatinine 0.4L, Estimat Glomerular Filtration Rate > 60, Glucose Level 139H, Calcium Level 8.4L, Pro-B-Type Natriuretic Peptide 2958H Height (Feet): 4 Height (Inches): 11.00 Weight (Pounds): 103 General Appearance: confused EENT: normal ENT inspection Neck: non-tender Cardiovascular: normal peripheral pulses Respiratory/Chest: decreased breath sounds Abdomen: non tender Edema: no edema noted Arm (L), no edema noted Arm (R), no edema noted Leg (L), no edema noted Leg (R), no edema noted Pedal (L) Neurologic: disoriented Skin: warm/dry Yo Madsen May 06, 2017 22:04
[2017-05-06] MEDS ORDERED: Miralax 17gm pkt ORAL PRN (22:45)
[2017-05-06] MEDS ORDERED: Zolpidem 5mg tab ORAL PRN (22:45)
[2017-05-07] VITALS (7 sets, daily range): BP systolic 98–156; BP diastolic 59–86
[2017-05-07] MEDS: Ciprofloxacin Opth Soln RIGHT EYE SCH ×4 (00:07→18:19)
[2017-05-07] MEDS: D5NS 1,000 ML IV SCH ×2 (03:47→16:24)
[2017-05-07] MEDS: Piperacillin/Tazobactam 3.375 GM in D5W 110 ML IVPB SCH ×3 (05:04→21:46)
[2017-05-07] MEDS: Heparin 5000 units/ml inj SUBQ SCH ×2 (08:28→20:58)
[2017-05-07] MEDS: LORazepam Inj 2mg/ml 1ml IV PRN (11:52)
--- NOTE | 2017-05-07 14:48 | Pulmonology Progress Note ---
Assessment/Plan Problems: (1) Pyuria (2) UTI (urinary tract infection) (3) Dyspnea (4) Hypotension (5) Melanoma (6) Cerebrovascular accident (CVA) (7) At high risk for aspiration Assessment/Plan HIDa scan negative on zosyn day 3 check cultures either Hospice or Gtube feeding social service input appreciated. Subjective ROS Limited/Unobtainable: No Interval Events: comfortable Allergies: Coded Allergies: No Known Allergies (Unverified , 05/04/17) Objective Last 24 Hour Vital Signs Date Time Temp Pulse Resp B/P Pulse Ox O2 Delivery O2 Flow Rate FiO2 05/07/17 12:00 97.3 82 20 99/77 97 Room Air 05/07/17 08:00 97.5 100 20 139/86 97 Room Air 05/07/17 04:00 97.2 110 18 128/86 96 Room Air 05/07/17 00:00 97.8 75 18 140/78 97 Room Air 05/06/17 15:41 96.5 91 19 142/99 97 Room Air Intake and Output 05/06/17 05/07/17 19:00 07:00 Intake Total 792.5 ml 362.5 ml Output Total 1300 ml 900 ml Balance -507.5 ml -537.5 ml IV Total 792.5 ml 362.5 ml Output Urine Total 1300 ml 900 ml General Appearance: WD/WN HEENT: normocephalic Respiratory/Chest: chest wall non-tender, lungs clear Breasts: no masses Cardiovascular: normal peripheral pulses Abdomen: soft, non tender, no organomegaly Extremities: no cyanosis Skin: no rash Microbiology Date/Time Source Procedure Growth Status 05/04/17 21:45 Blood Blood Culture - Preliminary NO GROWTH AFTER 48 HOURS Resulted 05/04/17 21:30 Blood Blood Culture - Preliminary NO GROWTH AFTER 48 HOURS Resulted 05/04/17 23:16 Nasal Nares MRSA Culture - Final NO METHICILLIN RESISTANT STAPH AUREUS... Complete 05/05/17 06:00 Urine,Catheterized Urine Culture - Final Escherichia Coli - Esbl Complete 05/04/17 23:16 Rectum VRE Culture - Final NO VANCOMYCIN RESISTANT ENTEROCOCCUS ... Complete Current Medications Medications (Trade) Dose Ordered Sig/Hamlet Route PRN Reason Start Time Stop Time Status Last Admin Dose Admin Acetaminophen (Tylenol) 650 mg Q4H PRN ORAL fever 05/06/17 02:45 06/05/17 02:44 Al Hydroxide/Mg Hydroxide (Mylanta II) 30 ml Q6H PRN ORAL dyspepsia 05/06/17 04:45 06/05/17 04:44 Ciprofloxacin (Ciloxan Opth Soln) 1 drop Q6HR RIGHT EYE 05/06/17 18:00 05/13/17 17:59 05/07/17 11:52 Dextrose (Dextrose 50%) STAT PRN IV Hypoglycemia 05/06/17 22:45 06/05/17 22:44 Dextrose/Sodium Chloride 1,000 ml @ 75 mls/hr [id number] IV 05/06/17 00:15 06/05/17 00:14 05/07/17 03:47 Fentanyl (Duragesic) 1 patch Q72H TDERMAL 05/08/17 10:00 05/15/17 09:59 Heparin Sodium (Porcine) (Heparin 5000 units/ml) 5,000 units EVERY 12 HOURS SUBQ 05/06/17 09:00 06/05/17 08:59 05/07/17 08:28 Hydromorphone HCl (Dilaudid) 2 mg Q2H PRN IVP Severe Pain (Pain Scale 7-10) 05/06/17 16:00 05/13/17 15:59 05/07/17 13:25 Lactulose (Cephulac) 30 gm FOUR TIMES A DAY PRN ORAL constipation 05/06/17 16:00 06/05/17 15:59 Levetiracetam (Keppra) 500 mg Q12HR ORAL 05/06/17 09:00 06/05/17 08:59 05/07/17 08:25 Lorazepam (Ativan 2mg/ml 1ml) 0.5 mg Q4H PRN IV For Anxiety 05/06/17 02:45 05/13/17 02:44 05/07/17 11:52 Naloxone HCl (Narcan) 0.1 mg PRN IV Sedation scale 3 or 4 05/06/17 00:15 Ondansetron HCl (Zofran) 4 mg Q6H PRN IVP Nausea & Vomiting 05/06/17 04:45 06/05/17 04:44 05/06/17 15:27 Oxycodone/ Acetaminophen (Percocet 10/325) 1 tab Q6H PRN ORAL Moderate Pain (Pain Scale 4-6) 05/06/17 04:00 05/13/17 03:59 Piperacillin Sod/ Tazobactam Sod/ Dextrose (Zosyn/D5W) 110 ml @ 27.5 mls/hr EVERY 8 HOURS IVPB 05/06/17 06:00 05/11/17 05:59 05/07/17 13:11 Polyethylene Glycol (Miralax) 17 gm HSPRN PRN ORAL Constipation 05/06/17 22:45 06/05/17 22:44 Zolpidem Tartrate (Ambien) 5 mg HSPRN PRN ORAL Insomnia 05/06/17 22:45 06/05/17 22:44 BARB SHAH May 07, 2017 14:48
--- NOTE | 2017-05-07 18:20 | Internal Med Progress Note ---
Subjective Date of Service: May 07, 2017 Physician Name Justo Marin Attending Physician Tarun Ortiz MD Current Medications Medications (Trade) Dose Ordered Sig/Hamlet Route PRN Reason Start Time Stop Time Status Last Admin Dose Admin Acetaminophen (Tylenol) 650 mg Q4H PRN ORAL fever 05/06/17 02:45 06/05/17 02:44 Al Hydroxide/Mg Hydroxide (Mylanta II) 30 ml Q6H PRN ORAL dyspepsia 05/06/17 04:45 06/05/17 04:44 05/07/17 15:24 Ciprofloxacin (Ciloxan Opth Soln) 1 drop Q6HR RIGHT EYE 05/06/17 18:00 05/13/17 17:59 05/07/17 11:52 Dextrose (Dextrose 50%) STAT PRN IV Hypoglycemia 05/06/17 22:45 06/05/17 22:44 Dextrose/Sodium Chloride 1,000 ml @ 75 mls/hr [id number] IV 05/06/17 00:15 06/05/17 00:14 05/07/17 16:24 Fentanyl (Duragesic) 1 patch Q72H TDERMAL 05/08/17 10:00 05/15/17 09:59 Heparin Sodium (Porcine) (Heparin 5000 units/ml) 5,000 units EVERY 12 HOURS SUBQ 05/06/17 09:00 06/05/17 08:59 05/07/17 08:28 Hydromorphone HCl (Dilaudid) 2 mg Q2H PRN IVP Severe Pain (Pain Scale 7-10) 05/06/17 16:00 05/13/17 15:59 05/07/17 16:23 Lactulose (Cephulac) 30 gm FOUR TIMES A DAY PRN ORAL constipation 05/06/17 16:00 06/05/17 15:59 Levetiracetam (Keppra) 500 mg Q12HR ORAL 05/06/17 09:00 06/05/17 08:59 05/07/17 08:25 Lorazepam (Ativan 2mg/ml 1ml) 0.5 mg Q4H PRN IV For Anxiety 05/06/17 02:45 05/13/17 02:44 05/07/17 11:52 Naloxone HCl (Narcan) 0.1 mg PRN IV Sedation scale 3 or 4 05/06/17 00:15 Ondansetron HCl (Zofran) 4 mg Q6H PRN IVP Nausea & Vomiting 05/06/17 04:45 06/05/17 04:44 05/06/17 15:27 Oxycodone/ Acetaminophen (Percocet 10/325) 1 tab Q6H PRN ORAL Moderate Pain (Pain Scale 4-6) 05/06/17 04:00 05/13/17 03:59 Piperacillin Sod/ Tazobactam Sod/ Dextrose (Zosyn/D5W) 110 ml @ 27.5 mls/hr EVERY 8 HOURS IVPB 05/06/17 06:00 05/11/17 05:59 05/07/17 13:11 Polyethylene Glycol (Miralax) 17 gm HSPRN PRN ORAL Constipation 05/06/17 22:45 06/05/17 22:44 Zolpidem Tartrate (Ambien) 5 mg HSPRN PRN ORAL Insomnia 05/06/17 22:45 06/05/17 22:44 Allergies: Coded Allergies: No Known Allergies (Unverified , 05/04/17) ROS Limited/Unobtainable: Yes Subjective 61 YO F with metastatic melanoma admitted with dyspnea and hypoxia. Now bibasilar pneumonia. Cover for Int Med-Dr Ortiz. Objective Last Vital Signs Date Time Temp Pulse Resp B/P Pulse Ox O2 Delivery O2 Flow Rate FiO2 05/07/17 16:15 104 150/81 05/07/17 16:00 97.7 20 98 Room Air 05/05/17 20:00 2.0 Microbiology Date/Time Source Procedure Growth Status 05/04/17 21:45 Blood Blood Culture - Preliminary NO GROWTH AFTER 48 HOURS Resulted 05/04/17 21:30 Blood Blood Culture - Preliminary NO GROWTH AFTER 48 HOURS Resulted 05/04/17 23:16 Nasal Nares MRSA Culture - Final NO METHICILLIN RESISTANT STAPH AUREUS... Complete 05/05/17 06:00 Urine,Catheterized Urine Culture - Final Escherichia Coli - Esbl Complete 05/04/17 23:16 Rectum VRE Culture - Final NO VANCOMYCIN RESISTANT ENTEROCOCCUS ... Complete Intake and Output 05/06/17 05/07/17 19:00 07:00 Intake Total 792.5 ml 362.5 ml Output Total 1300 ml 900 ml Balance -507.5 ml -537.5 ml IV Total 792.5 ml 362.5 ml Output Urine Total 1300 ml 900 ml Objective General Appearance: WD/WN, moderate distress, lethargic EENT: PERRL/EOMI Neck: non-tender, normal alignment, supple Cardiovascular: normal peripheral pulses, normal rate, regular rhythm, no gallop/murmur, no JVD Respiratory/Chest: respiratory distress, crackles/rales, rhonchi - bilaterally , expiratory wheezing Abdomen: normal bowel sounds, non tender, soft, no organomegaly, no mass Neurologic: product engineer II-XII grossly normal Skin: normal pigmentation, warm/dry Assessment/Plan Problem List: (1) Pneumonia Assessment & Plan: See pulmonary and Inf Dis note. Cont zosyn (2) Sepsis Assessment & Plan: Await blood cultures. See Inf Dis note. Cont zosyn (3) Altered mental status (4) Metabolic encephalopathy (5) Hypoxemia (6) Metastatic melanoma of brain Assessment & Plan: See onc note. (7) Hydrocephalus (8) Hemorrhagic cerebrovascular accident (CVA) (9) Hypothyroidism (10) Decubitus ulcer of sacral region, stage 2 (11) Hypotension (12) Elevated transaminase level Assessment & Plan: HIDA negative (13) UTI (urinary tract infection) Assessment & Plan: <10K E.Coli ESBL. Follow ID recs. Status: not improved Assessment/Plan Prognosis guarded; D/W daughter and JUSTO Fournier May 07, 2017 18:20
--- NOTE | 2017-05-07 22:44 | Infectious Diseases Prog Note ---
Assessment/Plan Assessment/Plan A: The patient is a 61-year-old female with probable Sepsis Pyuria, probable urinary tract infection. UCX ESBL+ E.coli , 10 K ( delayed Cx ) Transaminitis, improving HIDA(-) Ultrasound : gallbladder sludge and wall thickening ? Pna Chest x-ray : mild infiltrate versus atelectasis Leukopenia, afebrile Melanoma with mets to the brain History of hydrocephalus History of encephalopathy Cerebrovascular accident Hypothyroidism Stage II decubitus Status post craniotomy NKDA DNR PLAN: change IV Zosyn d # 3 to invanz d# 1 / 3 based on culture Monitor CBC. Monitor BMP. Monitor cultures (blood, urine, and sputum). Monitor liver function test Subjective Allergies: Coded Allergies: No Known Allergies (Unverified , 05/04/17) Subjective remains afebrile UCx ESBL HIDA(-) Objective Vital Signs Last 24 Hour Vital Signs Date Time Temp Pulse Resp B/P Pulse Ox O2 Delivery O2 Flow Rate FiO2 05/07/17 18:45 156/75 05/07/17 16:15 104 150/81 05/07/17 16:00 97.7 83 20 98/59 98 Room Air 05/07/17 12:00 97.3 82 20 99/77 97 Room Air 05/07/17 08:00 97.5 100 20 139/86 97 Room Air 05/07/17 04:00 97.2 110 18 128/86 96 Room Air 05/07/17 00:00 97.8 75 18 140/78 97 Room Air Height (Feet): 4 Height (Inches): 11.00 Weight (Pounds): 124 General Appearance: no acute distress Respiratory/Chest: no respiratory distress Cardiovascular: normal rate, regular rhythm Abdomen: normal bowel sounds, soft, non tender, non distended Microbiology Date/Time Source Procedure Growth Status 05/04/17 23:16 Nasal Nares MRSA Culture - Final NO METHICILLIN RESISTANT STAPH AUREUS... Complete 05/05/17 06:00 Urine,Catheterized Urine Culture - Final Escherichia Coli - Esbl Complete 05/04/17 23:16 Rectum VRE Culture - Final NO VANCOMYCIN RESISTANT ENTEROCOCCUS ... Complete Current Medications Medications (Trade) Dose Ordered Sig/Hamlet Route PRN Reason Start Time Stop Time Status Last Admin Dose Admin Acetaminophen (Tylenol) 650 mg Q4H PRN ORAL fever 05/06/17 02:45 7/8/17 02:44 Al Hydroxide/Mg Hydroxide (Mylanta II) 30 ml Q6H PRN ORAL dyspepsia 05/06/17 04:45 06/05/17 04:44 05/07/17 15:24 Ciprofloxacin (Ciloxan Opth Soln) 1 drop Q6HR RIGHT EYE 05/06/17 18:00 05/13/17 17:59 05/07/17 18:19 Dextrose (Dextrose 50%) STAT PRN IV Hypoglycemia 05/06/17 22:45 06/05/17 22:44 Dextrose/Sodium Chloride 1,000 ml @ 75 mls/hr [id number] IV 05/06/17 00:15 06/05/17 00:14 05/07/17 16:24 Fentanyl (Duragesic) 1 patch Q72H TDERMAL 05/08/17 10:00 05/15/17 09:59 Heparin Sodium (Porcine) (Heparin 5000 units/ml) 5,000 units EVERY 12 HOURS SUBQ 05/06/17 09:00 06/05/17 08:59 05/07/17 20:58 Hydromorphone HCl (Dilaudid) 2 mg Q2H PRN IVP Severe Pain (Pain Scale 7-10) 05/06/17 16:00 05/13/17 15:59 05/07/17 20:59 Lactulose (Cephulac) 30 gm FOUR TIMES A DAY PRN ORAL constipation 05/06/17 16:00 06/05/17 15:59 Levetiracetam (Keppra) 500 mg Q12HR ORAL 05/06/17 09:00 06/05/17 08:59 05/07/17 20:57 Lorazepam (Ativan 2mg/ml 1ml) 0.5 mg Q4H PRN IV For Anxiety 05/06/17 02:45 05/13/17 02:44 05/07/17 11:52 Naloxone HCl (Narcan) 0.1 mg PRN IV Sedation scale 3 or 4 05/06/17 00:15 Ondansetron HCl (Zofran) 4 mg Q6H PRN IVP Nausea & Vomiting 05/06/17 04:45 06/05/17 04:44 05/06/17 15:27 Oxycodone/ Acetaminophen (Percocet 10/325) 1 tab Q6H PRN ORAL Moderate Pain (Pain Scale 4-6) 05/06/17 04:00 05/13/17 03:59 Piperacillin Sod/ Tazobactam Sod/ Dextrose (Zosyn/D5W) 110 ml @ 27.5 mls/hr EVERY 8 HOURS IVPB 05/06/17 06:00 05/11/17 05:59 05/07/17 21:46 Polyethylene Glycol (Miralax) 17 gm HSPRN PRN ORAL Constipation 05/06/17 22:45 06/05/17 22:44 Zolpidem Tartrate (Ambien) 5 mg HSPRN PRN ORAL Insomnia 05/06/17 22:45 06/05/17 22:44 JANIS DOWNING May 07, 2017 22:44
[2017-05-07] MEDS ORDERED: Ertapenem 1 GM in NS 55 ML IVPB SCH (22:45)
[2017-05-07] MEDS ORDERED: Ertapenem (INVanz) Inj ONE (23:58)
[2017-05-08] VITALS: BP 138/73
[2017-05-08] MEDS: Ciprofloxacin Opth Soln RIGHT EYE SCH ×4 (00:19→17:42)
[2017-05-08] MEDS: LORazepam Inj 2mg/ml 1ml IV PRN ×2 (00:37→10:33)
[2017-05-08 04:00] VITALS: BP 134/70
[2017-05-08] MEDS: D5NS 1,000 ML IV SCH ×2 (05:59→18:55)
[2017-05-08 07:21] LABS: BASOPHILS % (AUTO) 0.6 % (0.0-2.0); EOSINOPHILS % (AUTO) 0.7 % (0.0-3.0); LYMPHOCYTES % (AUTO) 12.3 % (20.0-45.0); MEAN CORPUSCULAR HGB CONC 33.9 G/DL (32.0-36.0); MEAN CORPUSCULAR VOLUME 97 FL (80-99); MEAN PLATELET VOLUME 5.7 FL (6.5-10.1); MONOCYTES % (AUTO) 14.5 % (1.0-10.0); NEUTROPHILS % (AUTO) 71.9 % (45.0-75.0); PLATELET COUNT 235 K/UL (150-450); RED BLOOD COUNT 3.23 M/UL (4.20-5.40); RED CELL DISTRIBUTION WIDTH 12.7 % (11.6-14.8); WHITE BLOOD COUNT 3.6 K/UL (4.8-10.8)
[2017-05-08 07:32] LABS: CALCIUM 8.3 mg/dL (8.6-10.2); CARBON DIOXIDE 28 mEQ/L (20-30); CHLORIDE 99 mEQ/L (98-107); CREATININE 0.4 mg/dL (0.5-0.9); GLOMERULAR FILTRATION RATE > 60 mL/min (>60); HEMOLYSIS 6; SODIUM 140 mEQ/L (135-145)
[2017-05-08 07:42] LABS: ANION GAP 13 (5-15)
[2017-05-08 07:45] LABS: POTASSIUM 2.5 mEQ/L (3.4-4.9)
[2017-05-08] MEDS: Heparin 5000 units/ml inj SUBQ SCH (08:35)
[2017-05-08 08:42] VITALS: BP 129/91
[2017-05-08 11:41] VITALS: BP 145/97
--- NOTE | 2017-05-08 16:12 | General Progress Note ---
Assessment/Plan Assessment/Plan Assessment/Plan Assessment/Plan Assessment/Plan ASSESSMENT/RECS: # Metastatic melanoma with metastases to the brain - recent enlargement on imaging of her brain at her [facility] scan. ---> Originally started as Stage II melanoma in 2011, had surgical resection -- > spread 2013 to lymph nodes, underwent lymphadenectomy ---> received decarbazinum chemo in 2014, then temodar ---> rein 2016 received carboplatin/ paclitaxel --> has pulmonary disease on imaging from before 08/2016, wide metastatic spread of disease, has undergone gamma kinfe surgery at [facility], will see [facility] shortly # Anemia 2/2 chronic disease # Bilateral pna - on abx # AMS - likely related to brain metastases # Hypoxia. # Dyspnea. # Hypotension. # Hydrocephalus. # Metabolic encephalopathy. # Hemorrhagic cerebrovascular accident. Cale marcus M.D. Subjective Cardiovascular: Reports: no symptoms Gastrointestinal/Abdominal: Reports: no symptoms Neurologic/Psychiatric: Reports: no symptoms Endocrine: Reports: no symptoms Hematologic/Lymphatic: Reports: no symptoms Allergies: Coded Allergies: No Known Allergies (Unverified , 05/04/17) Objective Last 24 Hour Vital Signs Date Time Temp Pulse Resp B/P Pulse Ox O2 Delivery O2 Flow Rate FiO2 05/08/17 11:41 97.0 102 20 145/97 97 Room Air 05/08/17 08:42 97.3 88 15 129/91 98 Room Air 05/08/17 04:00 97.1 94 18 134/70 96 Room Air 05/08/17 00:00 97.5 96 18 138/73 Room Air 05/07/17 18:45 156/75 05/07/17 16:15 104 150/81 Intake and Output 05/07/17 05/08/17 19:00 07:00 Intake Total 942.5 ml 880 ml Output Total 700 ml 500 ml Balance 242.5 ml 380 ml IV Total 942.5 ml 880 ml Output Urine Total 700 ml 500 ml Laboratory Tests 05/08/17 05:35: White Blood Count 3.6L, Red Blood Count 3.23L, Hemoglobin 10.6L, Hematocrit 31.4L, Mean Corpuscular Volume 97, Mean Corpuscular Hemoglobin 33.0H, Mean Corpuscular Hemoglobin Concent 33.9, Red Cell Distribution Width 12.7, Platelet Count 235, Mean Platelet Volume 5.7L, Neutrophils (%) (Auto) 71.9, Lymphocytes ( %) (Auto) 12.3L, Monocytes (%) (Auto) 14.5H, Eosinophils (%) (Auto) 0.7, Basophils (%) (Auto) 0.6, Sodium Level 140, Potassium Level 2.5*L, Chloride Level 99, Carbon Dioxide Level 28, Anion Gap 13, Blood Urea Nitrogen 7, Creatinine 0.4L, Estimat Glomerular Filtration Rate > 60, Glucose Level 122H, Calcium Level 8.3L Height (Feet): 4 Height (Inches): 11.00 Weight (Pounds): 124 General Appearance: alert EENT: TMs normal Neck: supple Cardiovascular: regular rhythm Respiratory/Chest: lungs clear Abdomen: soft Extremities: non-tender Edema: no edema noted Arm (L), no edema noted Arm (R), no edema noted Leg (L), no edema noted Leg (R), no edema noted Pedal (L), no edema noted Pedal (R), no edema noted Generalized Edema: mild edema Neurologic: alert Skin: warm/dry Lymphatic: normal anterior cervical (L), normal anterior cervical (R), normal axillary (L), normal axillary (R), normal inguinal (L), normal inguinal (R), normal other, normal posterior cervical (L), normal posterior cervical (R), normal submandibular (L), normal submandibular (R), normal supraclavicular (L), normal supraclavicular (R) JOSÉ MIGUEL MORTON May 08, 2017 16:12
[2017-05-08 16:16] VITALS: BP 133/89
[2017-05-08] MEDS ORDERED: DURAGESIC1 E1 TDERMAL (17:22)
[2017-05-08] MEDS ORDERED: ATIVAN2 MG/ML IV (17:22)
[2017-05-08] MEDS ORDERED: PERCOCET 10-321 EACH ORAL (17:22)
[2017-05-08] MEDS ORDERED: MYLANTA II30 ML ORAL (17:22)
[2017-05-08] MEDS ORDERED: MIRALAX17 G2 ORAL (17:22)
[2017-05-08] MEDS ORDERED: ZOFRAN 4 MG4 MG/2 ML IVP (17:22)
[2017-05-08] MEDS ORDERED: KEPPRA500 M3 ORAL (17:22)
[2017-05-08] MEDS ORDERED: HYDROMORPHO2 MG/1 M5 IVP (17:22)
[2017-05-08] MEDS ORDERED: HEPARIN SO5000 UNIT2 SUBQ (17:22)
[2017-05-08] MEDS ORDERED: INVANZ1 G1 IM (17:22)
[2017-05-08] MEDS ORDERED: LACTULOSE20 GM/301 ORAL (17:22)
[2017-05-08] MEDS ORDERED: CILOXAN 0.3% O1 DROP RIGHT EYE (17:22)
[2017-05-08] MEDS ORDERED: AMBIEN5 MG ORAL (17:22)
[2017-05-08] MEDS ORDERED: ACETAMINOPHEN325 M1 ORAL (17:22)
--- NOTE | 2017-05-08 17:22 | Internal Med Progress Note ---
Subjective Date of Service: May 08, 2017 Physician Name Stacy Marin Attending Physician Tarun Ortiz MD Current Medications Medications (Trade) Dose Ordered Sig/Hamlet Route PRN Reason Start Time Stop Time Status Last Admin Dose Admin Acetaminophen (Tylenol) 650 mg Q4H PRN ORAL fever 05/06/17 02:45 06/05/17 02:44 Al Hydroxide/Mg Hydroxide (Mylanta II) 30 ml Q6H PRN ORAL dyspepsia 05/06/17 04:45 06/05/17 04:44 05/07/17 15:24 Ciprofloxacin 1 drop 1 drop Q6HR RIGHT EYE 05/06/17 18:00 05/13/17 17:59 05/08/17 12:42 Dextrose (Dextrose 50%) STAT PRN IV Hypoglycemia 05/06/17 22:45 06/05/17 22:44 Dextrose/Sodium Chloride (D5ns) 1,000 ml @ 75 mls/hr [id number] IV 05/06/17 00:15 06/05/17 00:14 05/08/17 05:59 Ertapenem 1 gm/ Sodium Chloride 55 ml @ 110 mls/hr Q24H IVPB 05/07/17 22:45 05/12/17 22:44 05/08/17 00:19 Fentanyl (Duragesic) 1 patch Q72H TDERMAL 05/08/17 10:00 05/15/17 09:59 05/08/17 10:32 Heparin Sodium (Porcine) (Heparin 5000 units/ml) 5,000 units EVERY 12 HOURS SUBQ 05/06/17 09:00 06/05/17 08:59 05/08/17 08:35 Hydromorphone HCl (Dilaudid) 2 mg Q2H PRN IVP Severe Pain (Pain Scale 7-10) 05/06/17 16:00 05/13/17 15:59 05/08/17 14:42 Lactulose (Cephulac) 30 gm FOUR TIMES A DAY PRN ORAL constipation 05/06/17 16:00 06/05/17 15:59 Levetiracetam (Keppra) 500 mg Q12HR ORAL 05/06/17 09:00 06/05/17 08:59 05/08/17 08:36 Lorazepam (Ativan 2mg/ml 1ml) 0.5 mg Q4H PRN IV For Anxiety 05/06/17 02:45 05/13/17 02:44 05/08/17 10:33 Naloxone HCl (Narcan) 0.1 mg PRN IV Sedation scale 3 or 4 05/06/17 00:15 Ondansetron HCl (Zofran) 4 mg Q6H PRN IVP Nausea & Vomiting 05/06/17 04:45 06/05/17 04:44 05/06/17 15:27 Oxycodone/ Acetaminophen (Percocet 10/325) 1 tab Q6H PRN ORAL Moderate Pain (Pain Scale 4-6) 05/06/17 04:00 05/13/17 03:59 Polyethylene Glycol (Miralax) 17 gm HSPRN PRN ORAL Constipation 05/06/17 22:45 06/05/17 22:44 Potassium Chloride (KCl 10mEq/100ml Premix) 100 ml @ 100 mls/hr Q1HR IVPB 05/08/17 14:00 05/08/17 17:59 05/08/17 16:35 Zolpidem Tartrate (Ambien) 5 mg HSPRN PRN ORAL Insomnia 05/06/17 22:45 06/05/17 22:44 Allergies: Coded Allergies: No Known Allergies (Unverified , 05/04/17) ROS Limited/Unobtainable: Yes Subjective 61 YO F with metastatic melanoma admitted with dyspnea and hypoxia. Now bibasilar pneumonia. Cover for Int Med-Dr Ortiz. Patient awaiting transfer to [facility]. C/O abdominal pain Objective Last Vital Signs Date Time Temp Pulse Resp B/P Pulse Ox O2 Delivery O2 Flow Rate FiO2 05/08/17 16:16 97.7 91 16 133/89 96 Room Air 05/05/17 20:00 2.0 Laboratory Tests Test 05/08/17 05:35 White Blood Count 3.6 K/UL (4.8-10.8) L Red Blood Count 3.23 M/UL (4.20-5.40) L Hemoglobin 10.6 G/DL (12.0-16.0) L Hematocrit 31.4 % (37.0-47.0) L Mean Corpuscular Volume 97 FL (80-99) Mean Corpuscular Hemoglobin 33.0 PG (27.0-31.0) H Mean Corpuscular Hemoglobin Concent 33.9 G/DL (32.0-36.0) Red Cell Distribution Width 12.7 % (11.6-14.8) Platelet Count 235 K/UL (150-450) Mean Platelet Volume 5.7 FL (6.5-10.1) L Neutrophils (%) (Auto) 71.9 % (45.0-75.0) Lymphocytes (%) (Auto) 12.3 % (20.0-45.0) L Monocytes (%) (Auto) 14.5 % (1.0-10.0) H Eosinophils (%) (Auto) 0.7 % (0.0-3.0) Basophils (%) (Auto) 0.6 % (0.0-2.0) Sodium Level 140 mEQ/L (135-145) Potassium Level 2.5 mEQ/L (3.4-4.9) *L Chloride Level 99 mEQ/L (98-107) Carbon Dioxide Level 28 mEQ/L (20-30) Anion Gap 13 (5-15) Blood Urea Nitrogen 7 mg/dL (7-23) Creatinine 0.4 mg/dL (0.5-0.9) L Estimat Glomerular Filtration Rate > 60 mL/min (>60) Glucose Level 122 mg/dL (74-106) H Calcium Level 8.3 mg/dL (8.6-10.2) L Intake and Output 05/07/17 05/08/17 19:00 07:00 Intake Total 942.5 ml 880 ml Output Total 700 ml 500 ml Balance 242.5 ml 380 ml IV Total 942.5 ml 880 ml Output Urine Total 700 ml 500 ml Objective General Appearance: WD/WN, moderate distress, lethargic EENT: PERRL/EOMI Neck: non-tender, normal alignment, supple Cardiovascular: normal peripheral pulses, normal rate, regular rhythm, no gallop/murmur, no JVD Respiratory/Chest: respiratory distress, crackles/rales, rhonchi - bilaterally , expiratory wheezing Abdomen: normal bowel sounds, non tender, soft, no organomegaly, no mass Neurologic: business services officer II-XII grossly normal Skin: normal pigmentation, warm/dry Assessment/Plan Problem List: (1) Pneumonia Assessment & Plan: See pulmonary and Inf Dis note. Cont zosyn (2) Sepsis Assessment & Plan: Await blood cultures. See Inf Dis note. Cont zosyn (3) Altered mental status (4) Metabolic encephalopathy (5) Hypoxemia (6) Metastatic melanoma of brain Assessment & Plan: See onc note. (7) Hydrocephalus (8) Hemorrhagic cerebrovascular accident (CVA) (9) Hypothyroidism (10) Decubitus ulcer of sacral region, stage 2 (11) Hypotension (12) Elevated transaminase level Assessment & Plan: HIDA negative (13) UTI (urinary tract infection) Assessment & Plan: <10K E.Coli ESBL. Follow ID recs. Assessment/Plan Transfer to [facility] today. D/W daughter. REHANASTACY May 08, 2017 17:22
--- NOTE | 2017-05-08 17:57 | Infectious Diseases Prog Note ---
Assessment/Plan Assessment/Plan A: The patient is a 61-year-old female with probable Sepsis Pyuria, probable urinary tract infection. UCX ESBL+ E.coli , 10 K ( delayed Cx ) Transaminitis, improving HIDA(-) Ultrasound : gallbladder sludge and wall thickening ? Pna Chest x-ray : mild infiltrate versus atelectasis Leukopenia, afebrile Melanoma with mets to the brain History of hydrocephalus History of encephalopathy Cerebrovascular accident Hypothyroidism Stage II decubitus Status post craniotomy NKDA DNR PLAN: continue invanz d# 2 / 3 ( 05/07 SP Zosyn d # 3 ) f/u final cultures Monitor CBC. Monitor BMP. Monitor liver function test Subjective Allergies: Coded Allergies: No Known Allergies (Unverified , 05/04/17) Subjective remains afebrile Objective Vital Signs Last 24 Hour Vital Signs Date Time Temp Pulse Resp B/P Pulse Ox O2 Delivery O2 Flow Rate FiO2 05/08/17 16:16 97.7 91 16 133/89 96 Room Air 05/08/17 11:41 97.0 102 20 145/97 97 Room Air 05/08/17 08:42 97.3 88 15 129/91 98 Room Air 05/08/17 04:00 97.1 94 18 134/70 96 Room Air 05/08/17 00:00 97.5 96 18 138/73 Room Air 05/07/17 18:45 156/75 Height (Feet): 4 Height (Inches): 11.00 Weight (Pounds): 124 General Appearance: no acute distress Respiratory/Chest: no respiratory distress Cardiovascular: normal rate, regular rhythm Abdomen: normal bowel sounds, soft, non tender, non distended Laboratory Tests Test 05/08/17 05:35 White Blood Count 3.6 K/UL (4.8-10.8) L Red Blood Count 3.23 M/UL (4.20-5.40) L Hemoglobin 10.6 G/DL (12.0-16.0) L Hematocrit 31.4 % (37.0-47.0) L Mean Corpuscular Volume 97 FL (80-99) Mean Corpuscular Hemoglobin 33.0 PG (27.0-31.0) H Mean Corpuscular Hemoglobin Concent 33.9 G/DL (32.0-36.0) Red Cell Distribution Width 12.7 % (11.6-14.8) Platelet Count 235 K/UL (150-450) Mean Platelet Volume 5.7 FL (6.5-10.1) L Neutrophils (%) (Auto) 71.9 % (45.0-75.0) Lymphocytes (%) (Auto) 12.3 % (20.0-45.0) L Monocytes (%) (Auto) 14.5 % (1.0-10.0) H Eosinophils (%) (Auto) 0.7 % (0.0-3.0) Basophils (%) (Auto) 0.6 % (0.0-2.0) Sodium Level 140 mEQ/L (135-145) Potassium Level 2.5 mEQ/L (3.4-4.9) *L Chloride Level 99 mEQ/L (98-107) Carbon Dioxide Level 28 mEQ/L (20-30) Anion Gap 13 (5-15) Blood Urea Nitrogen 7 mg/dL (7-23) Creatinine 0.4 mg/dL (0.5-0.9) L Estimat Glomerular Filtration Rate > 60 mL/min (>60) Glucose Level 122 mg/dL (74-106) H Calcium Level 8.3 mg/dL (8.6-10.2) L Current Medications Medications (Trade) Dose Ordered Sig/Hamlet Route PRN Reason Start Time Stop Time Status Last Admin Dose Admin Acetaminophen (Tylenol) 650 mg Q4H PRN ORAL fever 05/06/17 02:45 06/05/17 02:44 Al Hydroxide/Mg Hydroxide (Mylanta II) 30 ml Q6H PRN ORAL dyspepsia 05/06/17 04:45 06/05/17 04:44 05/07/17 15:24 Ciprofloxacin 1 drop 1 drop Q6HR RIGHT EYE 05/06/17 18:00 05/13/17 17:59 05/08/17 17:42 Dextrose (Dextrose 50%) STAT PRN IV Hypoglycemia 05/06/17 22:45 06/05/17 22:44 Dextrose/Sodium Chloride (D5ns) 1,000 ml @ 75 mls/hr [id number] IV 05/06/17 00:15 06/05/17 00:14 05/08/17 05:59 Ertapenem 1 gm/ Sodium Chloride 55 ml @ 110 mls/hr Q24H IVPB 05/07/17 22:45 05/12/17 22:44 05/08/17 00:19 Fentanyl (Duragesic) 1 patch Q72H TDERMAL 05/08/17 10:00 05/15/17 09:59 05/08/17 10:32 Heparin Sodium (Porcine) (Heparin 5000 units/ml) 5,000 units EVERY 12 HOURS SUBQ 05/06/17 09:00 06/05/17 08:59 05/08/17 08:35 Hydromorphone HCl (Dilaudid) 2 mg Q2H PRN IVP Severe Pain (Pain Scale 7-10) 05/06/17 16:00 05/13/17 15:59 05/08/17 14:42 Lactulose (Cephulac) 30 gm FOUR TIMES A DAY PRN ORAL constipation 05/06/17 16:00 06/05/17 15:59 Levetiracetam (Keppra) 500 mg Q12HR ORAL 05/06/17 09:00 06/05/17 08:59 05/08/17 08:36 Lorazepam (Ativan 2mg/ml 1ml) 0.5 mg Q4H PRN IV For Anxiety 05/06/17 02:45 05/13/17 02:44 05/08/17 10:33 Naloxone HCl (Narcan) 0.1 mg PRN IV Sedation scale 3 or 4 05/06/17 00:15 Ondansetron HCl (Zofran) 4 mg Q6H PRN IVP Nausea & Vomiting 05/06/17 04:45 06/05/17 04:44 05/06/17 15:27 Oxycodone/ Acetaminophen (Percocet 10/325) 1 tab Q6H PRN ORAL Moderate Pain (Pain Scale 4-6) 05/06/17 04:00 05/13/17 03:59 Polyethylene Glycol (Miralax) 17 gm HSPRN PRN ORAL Constipation 05/06/17 22:45 06/05/17 22:44 Potassium Chloride (KCl 10mEq/100ml Premix) 100 ml @ 100 mls/hr Q1HR IVPB 05/08/17 14:00 05/08/17 17:59 05/08/17 17:40 Zolpidem Tartrate (Ambien) 5 mg HSPRN PRN ORAL Insomnia 05/06/17 22:45 06/05/17 22:44 JANIS DOWNING May 08, 2017 17:57
[2017-05-08] MEDS ORDERED: Tubing IV Secondary IV ONE (19:59)
[2017-05-08] MEDS ORDERED: NS 275ml ONE (19:59)
[2017-05-08] MEDS ORDERED: D5NS 1000ml IV ONE (19:59)
[2017-05-08 20:00] VITALS: BP 116/81
--- NOTE | 2017-05-08 20:31 | General Progress Note ---
Assessment/Plan Assessment/Plan ASSESSMENT/RECS: # Metastatic melanoma with metastases to the brain - recent enlargement on imaging of her brain at her [facility] scan. ---> Originally started as Stage II melanoma in 2011, had surgical resection -- > spread 2013 to lymph nodes, underwent lymphadenectomy ---> received decarbazinum chemo in 2014, then temodar ---> rein 2016 received carboplatin/ paclitaxel --> has pulmonary disease on imaging from before 08/2016, wide metastatic spread of disease, has undergone gamma kinfe surgery at [facility], will follow with [facility] shortly # Anemia 2/2 chronic disease # Bilateral pna - on abx # AMS - likely related to brain metastases # Hypoxia. # Dyspnea. # Hypotension. # Hydrocephalus. # Metabolic encephalopathy. # Hemorrhagic cerebrovascular accident. Subjective Date patient seen: May 07, 2017 Constitutional: Reports: no symptoms HEENT: Reports: no symptoms Cardiovascular: Reports: no symptoms Respiratory: Reports: no symptoms Gastrointestinal/Abdominal: Reports: no symptoms Genitourinary: Reports: no symptoms Neurologic/Psychiatric: Reports: no symptoms Endocrine: Reports: unexplained weight gain Hematologic/Lymphatic: Reports: anemia Allergies: Coded Allergies: No Known Allergies (Unverified , 05/04/17) Subjective pt having breakthrough pain, meds adjusted Objective Last 24 Hour Vital Signs Date Time Temp Pulse Resp B/P Pulse Ox O2 Delivery O2 Flow Rate FiO2 05/08/17 16:16 97.7 91 16 133/89 96 Room Air 05/08/17 11:41 97.0 102 20 145/97 97 Room Air 05/08/17 08:42 97.3 88 15 129/91 98 Room Air 05/08/17 04:00 97.1 94 18 134/70 96 Room Air 05/08/17 00:00 97.5 96 18 138/73 Room Air Intake and Output 05/07/17 05/08/17 19:00 07:00 Intake Total 942.5 ml 880 ml Output Total 700 ml 500 ml Balance 242.5 ml 380 ml IV Total 942.5 ml 880 ml Output Urine Total 700 ml 500 ml Laboratory Tests 05/08/17 05:35: White Blood Count 3.6L, Red Blood Count 3.23L, Hemoglobin 10.6L, Hematocrit 31.4L, Mean Corpuscular Volume 97, Mean Corpuscular Hemoglobin 33.0H, Mean Corpuscular Hemoglobin Concent 33.9, Red Cell Distribution Width 12.7, Platelet Count 235, Mean Platelet Volume 5.7L, Neutrophils (%) (Auto) 71.9, Lymphocytes ( %) (Auto) 12.3L, Monocytes (%) (Auto) 14.5H, Eosinophils (%) (Auto) 0.7, Basophils (%) (Auto) 0.6, Sodium Level 140, Potassium Level 2.5*L, Chloride Level 99, Carbon Dioxide Level 28, Anion Gap 13, Blood Urea Nitrogen 7, Creatinine 0.4L, Estimat Glomerular Filtration Rate > 60, Glucose Level 122H, Calcium Level 8.3L Height (Feet): 4 Height (Inches): 11.00 Weight (Pounds): 124 General Appearance: no apparent distress EENT: TMs normal Neck: normal alignment Cardiovascular: normal rate Respiratory/Chest: lungs clear Abdomen: normal bowel sounds Extremities: non-tender Edema: 1+ Leg (L), 1+ Leg (R) Neurologic: no motor/sensory deficits, normal mood/affect Skin: warm/dry Yo Madsen May 08, 2017 20:31
--- NOTE | 2017-05-10 11:35 | Discharge Summary ---
Discharge Summary Hospital Course Date of Admission May 04, 2017 at 22:14 Date of Discharge May 08, 2017 at 20:00 Admitting Diagnosis dyspnea HPI Luisa Quezada is a 61 year old female who was admitted on May 04, 2017 at 22: 14 for Dyspnea Hospital Course dc summary #[id number] Discharge Medications New Medications: Ertapenem (Invanz) 1 Gm Vial 1 GM IM DAILY for 10 Days, VIAL Acetaminophen* (Acetaminophen 325MG Tablet*) 325 Mg Tablet 650 MG ORAL Q4H PRN for 30 Days, TAB Al Hydroxide/mg Hydroxide (Mag-Al Plus Suspension) 30 Ml Oral.susp 30 ML ORAL Q6H PRN for 30 Days, ML Ciprofloxacin (Ciprofloxacin HCl) 2.5 Ml Drops 1 DROP RIGHT EYE Q6HR for 30 Days, ML Fentanyl (Fentanyl) 1 Each Patch.td72 1 PATCH TDERMAL Q72H for 30 Days, PATCH Heparin Sod (Porcine) (Heparin Sodium*) 5 000/1 Ml Vial 5000 UNITS SUBQ EVERY 12 HOURS for 30 Days, VIAL Hydromorphone Hcl/Pf (Hydromorphone 2 Mg/Ml Syringe*) 2 Mg/1 Ml Disp.syrin 2 MG IVP Q2H PRN for 30 Days, EA Lactulose (Lactulose*) 20 Gm/30 Ml Solution 30 GM ORAL FOUR TIMES A DAY PRN for 30 Days, AMP Levetiracetam (Levetiracetam) 500 Mg Tablet 500 MG ORAL Q12HR for 30 Days, TAB Lorazepam (Lorazepam) 2 Mg/1 Ml Syringe 0.5 MG IV Q4H PRN for 30 Days, AMP Ondansetron* (Zofran*) 4 Mg/2 Ml Vial 4 MG IVP Q6H PRN for 30 Days, VIAL Oxycodone Hcl/Acetaminophen 10-325 Mg Tablet (Percocet 10-325 Mg Tablet*) 1 Each Tablet 1 TAB ORAL Q6H PRN for 30 Days, TAB Polyethylene Glycol 3350* (Miralax*) 17 Gm Powd.pack 17 GM ORAL HSPRN PRN for 30 Days, PACK Zolpidem Tartrate* (Ambien*) 5 Mg Tablet 5 MG ORAL HSPRN PRN for 30 Days, TAB Continued Medications: Ergocalciferol (Vitamin D2)* (Vitamin D*) 50,000 Unit Capsule 35664 UNIT ORAL ONCE A WEEK, CAP Loperamide Hcl (Loperamide) 2 Mg Capsule 2 MG PO EVERY 6 HOURS PRN for Diarrhea, CAP Methimazole (Tapazole) 5 Mg Tablet 5 MG PO DAILY, TAB Naproxen* (Naproxen*) 500 Mg Tablet 500 MG ORAL TWICE A DAY, TAB Pantoprazole Sodium (Protonix) 20 Mg Tablet.dr 40 MG ORAL DAILY, TAB Risperidone* (Risperdal*) 0.5 Mg Tablet 0.5 MG ORAL QHS, #30 TAB 0 Refills Tamsulosin Hcl (Tamsulosin Hcl*) 0.4 Mg Cap.er.24h 0.4 MG ORAL BEDTIME, CAP [lidocaie patch] () 5 % TD DAILY Discontinued Medications: Fentanyl 50MCG Patch (Fentanyl 50MCG Patch*) 1 Each Patch.td72 1 PATCH TOPIC EVERY 72 HOURS, PATCH Levetiracetam (Keppra) 500 Mg Tablet 500 MG ORAL EVERY 12 HOURS, #60 TAB 0 Refills Ondansetron (Zofran) 4 Mg Tablet 4 MG ORAL Q8HR PRN for Nausea & Vomiting, TAB Prednisone* (Prednisone*) 20 Mg Tablet 60 MG ORAL DAILY, TAB [hydromorphone] () 4 MG PO EVERY 2 HOURS PRN for For Pain Discharge Condition Upon Discharge: stable Discharge Disposition Patient was discharged to [facility] Discharge Diagnoses: Discharge Instructions Discharge Instructions Special Instructions I have been assigned to complete a D/C Summary on this account. I was not involved in the patient management Mer Daniels NP (Vanchtein) May 10, 2017 11:35
--- NOTE | 2017-05-11 02:45 | Discharge Summary 2 SIG ---
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 The patient was unable to provide any information. Chest x-ray revealed infiltrates in the lung bases. Urinalysis was consistent with UTI. There was no leukocytosis. Low-grade fever - 99.7 degrees, pulse- 117, blood pressure - 92/53. EKG revealed sinus rhythm. No acute ischemic changes. Lactic acid was within normal limits-1.1. Noted transaminitis: AST -106 and ALT -143. Troponin was negative. Pro BNP - 2890. Abdominal ultrasound revealed gallbladder sludge with gallbladder wall thickening. The patient was admitted for further management. ADMITTING DIAGNOSES: 1. Urinary tract infection. 2. Possible pneumonia. 3. Hypotension. 4. Hypoxemia. 5. Altered level of consciousness. 6. History of metastatic melanoma with metastasis to brain. 7. Sacral decubitus, stage II, present on admission. 8. Transaminitis. HOSPITAL STAY: The patient was admitted. The patient was started on the IV fluids and broad spectrum antibiotics. ID consult requested. Blood culture negative. Urine culture positive for E. coli ESBL. Sputum culture was not obtained. Per ID, continue Invanz at the fdc facility for additional 10 days. Pulmonology specialist followed for pulmonary issues. Supplemental oxygen and pulmonary toilet provided as needed. Per industrial automation specialist, the patient was at high risk for aspiration. Swallow evaluation revealed aspiration risk and dysphagia. Diet to be continued at [facility]dc facility as recommended by speech therapist with strict aspiraton and reflux precautions. 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 The patient's overall prognosis was not favorable. Patient DNR status. Hemoglobin and hematocrit were closely monitored, remained on the baseline and no need for transfusion. According to patient service coordinator, he had anemia of chronic disease. Pain management was addressed, and pain was controlled. The patient had a history of hyperthyroidism and was on Tapazole. TSH was low. Full thyroid panel needs to be checked at admitting hospital for further adjustment of Tapazole as needed. Wound care nurse had seen the patient for the sacral decubitus, present on admission and recommended wound care, which was initiated in the hospital and to be continued at admitting hospital. Acute metabolic encephalopathy was likely multifactorial with element of acute on chronic due to the history of brain metastasis as well as the infectious process. Venous Duplex of bilateral lower extremities was negative. Due to transaminitis and abdominal ultrasound results with evidence of gallbladder sludge and wall thickening, HIDA scan was done, which was negative. LFT trending down. The patient was stable for transfer to [facility]. FINAL DIAGNOSES: 1. Probable sepsis. 2. Urinary tract infection with Escherichia coli Extended spectrum beta- lactamases. 3. Probable bibasilar pneumonia. 4. Transaminitis. 5. Hypoxemia. 6. Hypertension. 7. History of metastatic melanoma with metastasis to brain. 8. Acute on chronic metabolic encephalopathy. 9. Hyperthyroidism. 10. History of cerebrovascular accident. 11. Anemia of chronic disease. 12. Dysphagia. 13. High aspiration risk. 14. Sacral decubitus, stage II present on admission. DISCHARGE MEDICATIONS: See medication reconciliation list. DISCHARGE INSTRUCTIONS: The patient was discharged to [facility]. The patient to follow up with medical doctor at the hospital. Tarun Ortiz M.D. I have been assigned to dictate discharge summary on this account and I was not involved in the patient's management. Mer Chavezjarocho N.P. DR: Lencho JOB#: [id number] CC: [id number]
--- NOTE | 2017-05-11 12:56 | Diagnostic Imaging Report ---
APPROVED REPORT CPT Code: 61351 Present Symptoms Lower Extremity Pain: Bilateral RIGHT LEG: Venous imaging reveals a patent deep venous system. There is no evidence of thrombus within the femoral, popliteal or tibial segments. The greater saphenous vein is also within normal limits. Doppler indicates normal spontaneous flow within these segments. LEFT LEG: Venous imaging reveals a patent deep venous system. There is no evidence of thrombus within the femoral, popliteal or tibial segments. Doppler indicates normal spontaneous flow within these segments.: Imaging reveals thrombus of indeterminate age in the proximal greater saphenous vein.
== END 2017-05-08 20:00 | disposition short-term general hospital (02) | DRG 720 ==
LOC: EDBD 21:11 → EMR 21:42 → 2E 22:14 → EDBEDREQ 22:37 → 4E 05-05 23:42
DX: A41.9 Sepsis, unspecified organism (principal); G93.41 Metabolic encephalopathy; G91.9 Hydrocephalus, unspecified; L89.152 Pressure ulcer of sacral region, stage 2; C43.9 Malignant melanoma of skin, unspecified; C79.31 Secondary malignant neoplasm of brain; J18.9 Pneumonia, unspecified organism; R13.10 Dysphagia, unspecified; D63.8 Anemia in other chronic diseases classified elsewhere; I95.9 Hypotension, unspecified; E05.90 Thyrotoxicosis, unspecified without thyrotoxic crisis or storm; G89.29 Other chronic pain; N39.0 Urinary tract infection, site not specified; Z66 Do not resuscitate; R09.02 Hypoxemia; E03.9 Hypothyroidism, unspecified; B96.20 Unspecified Escherichia coli [E. coli] as the cause of diseases classified elsewhere; Z86.73 Personal history of transient ischemic attack (TIA), and cerebral infarction without residual deficits
CPT/HCPCS: 36415; 71010; 76700; 78266; 80048; 80053; 80299; 81001; 81003; 82550; 82553; 83605; 83690; 83880; 84443; 84484; 85007; 85025; 85610; 85730; 87040; 87081; 87086; 87181; 93005; 93306; 93970; J2405